=== PATIENT | female | born 1965 | race Caucasian/White ===

== ENCOUNTER 2018-07-03 16:23 | Inpatient (IN) | payer BC ==
[~2018-07-03] VITALS: Ht 167.6 cm; Wt 52.6 kg
[~2018-07-03 16:23] MED LIST: LORTAB ELIXIR473 ML PO; NORCO 10MG-325MG1 EA PO
--- OUTSIDE RECORDS SUMMARY | 2018-07-03 16:26 | XMS REPORT | Continuity of Care Document ---
Author Author Jeanna morales [facility] Interface Address Unknown Phone Unavailable Problems Problem Status Onset Date Classification Date Reported Comments Source FEVER Active 01/23/2017 [facility] HYPOTENSION Active 01/23/2017 [facility] CHRONIC PAIN Active 01/18/2017 [facility] GENERALIZED WEAKNESS, DEHYDRATION Active 01/18/2017 [facility] PATULOUS EUSTACHIAN TUBE Active 02/22/2015 [facility] 472.0 - CHRONIC RHINITI Active 01/09/2014 [facility] Fibromyalgia Resolved Problem 01/28/2017 [facility] Hearing loss Active Problem 01/28/2017 [facility] Interstitial cystitis<sup>1</sup> Active Problem 01/28/2017 bladder [facility] Moderate protein-calorie malnutrition Active Problem 01/28/2017 [facility] Osteoporosis Active Problem 01/28/2017 [facility] PATULOUS EUSTACHIAN TUBE Active [facility] WEAKNESS Active [facility] DEHYDRATION Active [facility] HYPOTENSION, UNSPECIFIED Active [facility] Medications Medication Details Route Status Patient Instructions Ordering Provider Order Date Source pantoprazole 40 MG Enteric Coated Tablet [Protonix] 40 mg=1 tab, PO, Daily, # 30 tab, 1 Refill(s) Active 01/25/2017 [facility] Sucralfate 1000 MG Oral Tablet [Carafate] 1 gm=1 tab, PO, BID, # 60 tab, 2 Refill(s) Active 01/25/2017 [facility] Fluconazole 200 MG Oral Tablet [Diflucan] 200 mg=1 tab, PO, Daily, X 5 day, # 5 tab, 0 Refill(s) Active 01/25/2017 [facility] Sodium Chloride 0.154 MEQ/ML Injectable Solution 1,000 mL, Rate: 25 ml/hr, Infuse over: 40 hr, Route: IV, Dosing Weight 59.091 kg, Total Volume: 1,000, Start date: 01/25/17 10:21:00 CDT, Duration: 30 day, Stop date: 02/24/17 10:20:00 CDT Inactive 01/25/2017 [facility] Carafate 1 gm, 1 tab, Route: PO, Drug form: TAB, BID, Dosing Weight 59.091, kg, Start date: 01/24/17 9:00:00 CDT, Duration: 30 day, Stop date: 02/22/17 17:00:00 CDTNotes: May interfere w/enteral feeds - Take 1 hr before or 2 hr after antacids, dairy pdt, meals & minerals - On empty stomach. For patients unable to swallow tablet, dissolve in 10mL - 30mL of water or juice and stir before giving. (Same As: Carafate) No Longer Active 01/24/2017 [facility] duloxetine 30 mg, 1 cap, Route: PO, Drug form: DRC, Daily, Dosing Weight 59.091, kg, Start date: 01/24/17 9:00:00 CDT, Duration: 30 day, Stop date: 02/22/17 9:00:00 CDTNotes: (Same as: Cymbalta) (Do Not Crush) No Longer Active 01/24/2017 [facility] Sucralfate 1000 MG Oral Tablet [Carafate] 1 gm=1 tab, PO, BID, # 120 tab, 0 Refill(s) No Longer Active 01/24/2017 [facility] Rabeprazole sodium 20 MG Enteric Coated Tablet [Aciphex] 20 mg=1 tab, PO, Daily, # 30 tab, 1 Refill(s) No Longer Active 01/24/2017 [facility] Sodium Chloride 0.154 MEQ/ML Injectable Solution 100 mL, Rate: 10 ml/hr, Infuse over: 10 hr, Route: IVPB, Dosing Weight 59.091 kg, Total Volume: 100, Infuse at 8 mg / hr for 72 hours for GI bleeding, Start date: 01/23/17 23:55:00 CDT, Duration: 72 hr, Stop date: 01/26/17 23:54:00 CDT No Longer Active 01/24/2017 [facility] sodium chloride 0.9% INJ 250 mL 250 mL, Rate: respiratory therapist for use with blood product administration, Dosing Weight 59.091, kg, Route: IV, Total Volume: 250, Start Date: 01/23/17 23:45:00 CDT, Duration: 30 day, Stop date: 02/22/17 23:44:00 CDT, Replace Every: 24 hr No Longer Active 01/24/2017 [facility] Morphine 2 mg, 1 mL, Route: IVP, Drug form: SOLN, Q4H, Dosing Weight 59.091, kg, PRN Pain Score 7-10, Start date: 01/23/17 23:42:00 CDT, Stop date: 02/22/17 23:41:00 CDT No Longer Active 01/24/2017 [facility] Ondansetron 4 mg, 2 mL, Route: IVP, Drug form: INJ, Q6H, Dosing Weight 59.091, kg, PRN Nausea & Vomiting, Start date: 01/23/17 23:42:00 CDT, Duration: 30 day, Stop date: 02/22/17 23:41:00 CDTNotes: (Same as: César) MEDICATION WASTE Product Size: 4 mg Product Wasted: ___ mg No Longer Active 01/24/2017 [facility] Acetaminophen 325 MG / Hydrocodone Bitartrate 5 MG Oral Tablet 1 tab, Route: PO, Drug Form: TAB, Dosing Weight 59.091, kg, Q4H, PRN Pain Score 4-6, Start date: 01/23/17 23:42:00 CDT, Duration: 30 day, Stop date: 02/22/17 23:41:00 CDTNotes: (Same as: Morrison 325/5) Do not exceed 4gm/day of acetaminophen. No Longer Active 01/24/2017 [facility] Ceftriaxone 1 gm, Route: IVPB, ONCE, Dosing Weight 59.091, kg, Priority: STAT, Start date: 01/23/17 23:15:00 CDT, Duration: 1 doses or times, Stop date: 01/23/17 23:15:00 CDT, ABX Indication: BacteremiaNotes: (Same As: Rocephin). Use with 100 mL NS and infuse over 30 min MEDICATION WASTE Product Size: 1000 mg Product Wasted: ___ mg Inactive 01/24/2017 [facility] Sodium Chloride 0.154 MEQ/ML Injectable Solution 1,000 mL, 1000 ml/hr, Infuse Over: 1 hr, Route: IV, 1,000, Drug form: INJ, ONCE, Priority: STAT, Dosing Weight 59.091 kg, Start date: 01/23/17 23:15:00 CDT, Duration: 1 doses or times, Stop date: 01/23/17 23:15:00 CDT Inactive 01/24/2017 [facility] Sodium Chloride 0.154 MEQ/ML Injectable Solution 1,000 mL, 1000 ml/hr, Infuse Over: 1 hr, Route: IV, 1,000, Drug form: INJ, ONCE, Priority: STAT, Dosing Weight 59.091 kg, Start date: 01/23/17 19:55:00 CDT, Duration: 1 doses or times, Stop date: 01/23/17 19:55:00 CDT Inactive 01/24/2017 [facility] Sodium Chloride 0.154 MEQ/ML Injectable Solution 1,000 mL, 2,000 ml/hr, Infuse Over: 0.5 hr, Route: IV, 1,000, Drug form: INJ, ONCE, Priority: STAT, Dosing Weight 59.091 kg, Start date: 01/23/17 19:37:00 CDT, Duration: 1 doses or times, Stop date: 01/23/17 19:37:00 CDT Inactive 01/24/2017 [facility] Saline Flush 0.9% 10 mL, Route: IVP, Drug Form: INJ, Dosing Weight 59.091, kg, PRN, PRN Line Flush, Start date: 01/23/17 19:37:00 CDT, Duration: 30 day, Stop date: 02/22/17 19:36:00 CDTNotes: (Same as: BD Posiflush) No Longer Active 01/24/2017 [facility] cefdinir 300 MG Oral Capsule 300 mg=1 cap, PO, [id number], # 14 cap, 0 Refill(s), other Inactive 01/23/2017 [facility] potassium chloride 10 mEq oral capsule, extended release 10 mEq=1 cap, PO, Daily, # 30 cap, 1 Refill(s) No Longer Active 01/23/2017 [facility] Metronidazole 500 MG Oral Tablet [Flagyl] 500 mg=1 tab, PO, Q8H, X 7 day, # 21 tab, 0 Refill(s) No Longer Active 01/23/2017 [facility] cefdinir 300 MG Oral Capsule 300 mg=1 cap, PO, [id number], # 14 cap, 0 Refill(s) Inactive 01/23/2017 [facility] cefdinir 300 MG Oral Capsule 300 mg, 1 cap, Route: PO, Drug form: CAP, [id number], Dosing Weight 49.545, kg, Start date: 01/22/17 18:00:00 CDT, Duration: 30 day, Stop date: 02/21/17 6:00:00 CDTNotes: (Same As: Omnicef) No Longer Active 01/22/2017 [facility] Magnesium Sulfate 2 gm, 50 mL, Route: IVPB, Drug form: INJ, ONCE, Dosing Weight 49.545, kg, Start date: 01/22/17 16:34:00 CDT, Duration: 2 hr, Stop date: 01/22/17 16:34:00 CDTNotes: WASTE: F/P - Sink; E - Municipal Trash Bin Inactive 01/22/2017 [facility] Calcium Gluconate 3 gm, 30 mL, Route: IVPB, PRN, Dosing Weight 49.545, kg, PRN Abnormal Lab Result, For NON-ICU Patients Only., Start date: 01/22/17 16:30:00 CDT, Duration: 30 day, Stop date: 02/21/17 16:29:00 CDTNotes: WASTE: F/P - Sink; E - Municipal Trash Bin No Longer Active 01/22/2017 [facility] Magnesium Sulfate 2 gm, 50 mL, Route: IVPB, Drug form: INJ, PRN, Dosing Weight 49.545, kg, PRN Abnormal Lab Result, For NON-ICU Patients Only., Start date: 01/22/17 16:30:00 CDT, Duration: 30 day, Stop date: 02/21/17 16:29:00 CDTNotes: WASTE: F/P - Sink; E - Municipal Trash Bin No Longer Active 01/22/2017 [facility] Magnesium Oxide 800 mg, 2 tab, Route: PO, Drug form: TAB, PRN, Dosing Weight 49.545, kg, PRN Abnormal Lab Result, For NON-ICU Patients Only., Start date: 01/22/17 16:30:00 CDT, Duration: 30 day, Stop date: 02/21/17 16:29:00 CDTNotes: (Same as: Mag-Ox 400) Magnesium oxide [id number] elemental magnesium Dose=____mg magnesium oxide (___mg elemental magnesium) No Longer Active 01/22/2017 [facility] sodium phosphate + D5W 250 mL 30 mmol, 10 mL, Route: IVPB, PRN, Dosing Weight 49.545, kg, PRN Abnormal Lab Result, For NON-ICU Patients Only., Start date: 01/22/17 16:30:00 CDT, Duration: 30 day, Stop date: 02/21/17 16:29:00 CDT No Longer Active 01/22/2017 [facility] potassium phosphate + sodium chloride 0.9% INJ 250 mL 15 mmol, 5 mL, Route: IVPB, PRN, Dosing Weight 49.545, kg, PRN Abnormal Lab Result, For NON-ICU Patients Only., Start date: 01/22/17 16:30:00 CDT, Duration: 30 day, Stop date: 02/21/17 16:29:00 CDTNotes: (Same as: K Phosphate.) 1 mMol phoshate has 1.47 mEq potassium Infuse over 4 hours No Longer Active 01/22/2017 [facility] potassium chloride 10 mEq, 100 mL, Route: IVPB, Drug form: INJ, PRN, Dosing Weight 49.545, kg, PRN Abnormal Lab Result, For NON-ICU Patients Only, Start date: 01/22/17 16:30:00 CDT, Duration: 30 day, Stop date: 02/21/17 16:29:00 CDTNotes: Infuse at a rate of 10 mEq/hr. (Same as: KCL) No Longer Active 01/22/2017 [facility] potassium phosphate-sodium phosphate 250 mg-280 mg-160 mg oral powder for reconstitution 2 pkt, Route: PO, Drug Form: PDR/REC, Dosing Weight 49.545, kg, PRN, PRN Abnormal Lab Result, For NON-ICU Patients Only, Start date: 01/22/17 16:30:00 CDT, Duration: 30 day, Stop date: 02/21/17 16:29:00 CDTNotes: (Same as: Phos-NaK) Each 1.5 gm pkt has 250mg phosphorous. Mix w/2.5oz water and stir. No Longer Active 01/22/2017 [facility] Paxil 20 mg, 2 tab, Route: PO, Drug form: TAB, Daily, Dosing Weight 49.545, kg, Start date: 01/22/17 9:00:00 CDT, Duration: 30 day, Stop date: 02/20/17 9:00:00 CDTNotes: (Same as: Paxil) No Longer Active 01/22/2017 [facility] potassium chloride 40 mEq, 2 tab, Route: PO, Drug form: ERTAB, PRN, Dosing Weight 49.545, kg, PRN Abnormal Lab Result, Electrolyte replacement, Start date: 01/22/17 8:10:00 CDT, Duration: 30 day, Stop date: 02/21/17 8:09:00 CDTNotes: (Same as: K-Dur 20) "Do Not Crush" With food and full glass of water No Longer Active 01/22/2017 [facility] sodium chloride 0.45% 1000 ml INJ 1,000 mL 1,000 mL, Rate: 1,000 ml/hr, Infuse over: 1 hr, Route: IV, Dosing Weight 49.545 kg, Total Volume: 1,000, Start date: 01/22/17 0:06:00 CDT, Duration: 1 doses or times, Stop date: 01/22/17 1:05:00 CDT Inactive 01/22/2017 [facility] sodium chloride 0.45% 1000 ml INJ 1,000 mL 1,000 mL, Rate: 100 ml/hr, Infuse over: 10 hr, Route: IV, Dosing Weight 49.545 kg, Total Volume: 1,000, Start date: 01/22/17 0:03:00 CDT, Duration: 30 day, Stop date: 02/21/17 0:02:00 CDT Inactive 01/22/2017 [facility] Flagyl 500 mg, 100 mL, Route: IV, Drug form: INJ, [id number], Dosing Weight 49.545, kg, Start date: 01/21/17 23:00:00 CDT, Duration: 30 day, Stop date: 02/20/17 15:00:00 CDT, ABX Indication: Infectious DiarrheaNotes: (Same as: Flagyl) Avoid alcohol. No Longer Active 01/22/2017 [facility] Imodium A-D 4 mg, 2 cap, Route: PO, Drug form: CAP, Q6H, Dosing Weight 49.545, kg, PRN Diarrhea, Start date: 01/21/17 22:30:00 CDT, Duration: 30 day, Stop date: 02/20/17 22:29:00 CDTNotes: (Same as: Imodium) MAX adult dose is 8 caps/day No Longer Active 01/22/2017 [facility] potassium chloride 20 mEq, Route: IVPB, Q2H, Dosing Weight 49.545, kg, Total dose=40 mEq, Start date: 01/21/17 10:00:00 CDT, Duration: 2 doses or times, Stop date: 01/21/17 12:00:00 CDT, Central Line Inactive 01/21/2017 [facility] potassium chloride 10 mEq, 1 tab, Route: PO, Drug form: ERTAB, BID, Dosing Weight 49.545, kg, Start date: 01/21/17 9:00:00 CDT, Duration: 30 day, Stop date: 02/19/17 17:00:00 CDTNotes: (Same as: K-Dur 10) "Do Not Crush" With food and full glass of water No Longer Active 01/21/2017 [facility] Magnesium Sulfate 2 gm, 50 mL, Route: IVPB, Drug form: INJ, ONCE, Dosing Weight 49.545, kg, Total dose=2 gm, Start date: 01/20/17 11:40:00 CDT, Duration: 1 doses or times, Stop date: 01/20/17 11:40:00 CDTNotes: WASTE: F/P - Sink; E - Municipal Trash Bin Inactive 01/20/2017 [facility] potassium chloride 10 mEq, 100 mL, Route: IVPB, Drug form: INJ, Q1H, Dosing Weight 49.545, kg, Total Dose=20 meq, Start date: 01/20/17 8:00:00 CDT, Duration: 2 doses or times, Stop date: 01/20/17 9:00:00 CDT, Peripheral LineNotes: Infuse at a rate of 10 mEq/hr. (Same as: KCL) Inactive 01/20/2017 [facility] potassium chloride 40 mEq, 2 tab, Route: PO, Drug form: ERTAB, ONCE, Dosing Weight 49.545, kg, Start date: 01/20/17 7:30:00 CDT, Stop date: 01/20/17 7:30:00 CDTNotes: (Same as: K-Dur 20) "Do Not Crush" With food and full glass of water Inactive 01/20/2017 [facility] Valium 10 mg, 2 tab, Route: PO, Drug form: TAB, TID, Dosing Weight 49.545, kg, PRN Anxiety, Start date: 01/19/17 8:13:00 CDT, Duration: 30 day, Stop date: 02/18/17 8:12:00 CDTNotes: (Same as: Valium) No Longer Active 01/19/2017 [facility] Acetaminophen 325 MG / Hydrocodone Bitartrate 10 MG Oral Tablet [Morrison 10/325] 1 tab, Route: PO, Drug Form: TAB, Dosing Weight 49.545, kg, TID, PRN Pain Score 4-6, Start date: 01/19/17 8:13:00 CDT, Duration: 30 day, Stop date: 02/18/17 8:12:00 CDTNotes: Do not exceed 4gm/day of acetaminophen. (Same as: Morrison 325/10) No Longer Active 01/19/2017 [facility] Zofran 4 mg, 2 mL, Route: IVP, Drug form: INJ, Q6H, Dosing Weight 49.545, kg, PRN Nausea, Start date: 01/18/17 21:12:00 CDT, Duration: 30 day, Stop date: 02/17/17 21:11:00 CDTNotes: (Same as: Zofran) MEDICATION WASTE Product Size: 4 mg Product Wasted: ___ mg No Longer Active 01/19/2017 [facility] Tylenol 650 mg, 2 tab, Route: PO, Drug form: TAB, Q6H, Dosing Weight 49.545, kg, PRN Pain 1-3/Temp > 100.4 F, Start date: 01/18/17 21:11:00 CDT, Duration: 30 day, Stop date: 02/17/17 21:10:00 CDTNotes: Do not exceed 4 gm/day. (Same as: Tylenol) No Longer Active 01/19/2017 [facility] Docusate 100 mg, 1 cap, Route: PO, Drug form: CAP, BID, Dosing Weight 59.091, kg, Start date: 01/18/17 9:00:00 CDT, Duration: 30 day, Stop date: 02/16/17 17:00:00 CDTNotes: (Same as: Colace) (Do Not Crush) No Longer Active 01/18/2017 [facility] Diazepam 10 MG Oral Tablet [Valium] 10 mg=1 tab, PO, TID, PRN as needed for anxiety, 0 Refill(s) No Longer Active 01/18/2017 [facility] Rocephin 1 gm, Route: IVPB, [id number], Dosing Weight 59.091, kg, Start date: 01/18/17 6:00:00 CDT, Duration: 5 day, Stop date: 01/22/17 6:00:00 CDT, ABX Indication: Immunocompromised Host ProphylaxisNotes: (Same As: Rocephin). Use with 100 mL NS and infuse over 30 min MEDICATION WASTE Product Size: 1000 mg Product Wasted: ___ mg No Longer Active 01/18/2017 [facility] Sodium Chloride 0.154 MEQ/ML Injectable Solution 1,000 mL, Rate: 125 ml/hr, Infuse over: 8 hr, Route: IV, Dosing Weight 59.091 kg, Total Volume: 1,000, Start date: 01/18/17 5:56:00 CDT, Duration: 30 day, Stop date: 02/17/17 5:55:00 CDT No Longer Active 01/18/2017 [facility] Saline Flush 0.9% 10 ml, Route: IVP, Drug Form: INJ, Dosing Weight 59.091, kg, PRN, PRN Line Flush, Start date: 01/18/17 5:56:00 CDT, Duration: 30 day, Stop date: 02/17/17 5:55:00 CDTNotes: (Same as: BD Posiflush) No Longer Active 01/18/2017 [facility] Ondansetron 4 mg, 2 mL, Route: IVP, Drug form: INJ, Q6H, Dosing Weight 59.091, kg, PRN Nausea & Vomiting, Start date: 01/18/17 5:56:00 CDT, Duration: 30 day, Stop date: 02/17/17 5:55:00 CDTNotes: (Same as: Zoan) MEDICATION WASTE Product Size: 4 mg Product Wasted: ___ mg No Longer Active 01/18/2017 [facility] Acetaminophen 325 MG / Hydrocodone Bitartrate 5 MG Oral Tablet 1 tab, Route: PO, Drug Form: TAB, Dosing Weight 59.091, kg, Q4H, PRN Pain Score 4-6, Start date: 01/18/17 5:56:00 CDT, Duration: 30 day, Stop date: 02/17/17 5:55:00 CDTNotes: (Same as: Morrison 325/5) Do not exceed 4gm/day of acetaminophen. No Longer Active 01/18/2017 [facility] Sodium Chloride 0.154 MEQ/ML Injectable Solution 1,000 mL, 1000 ml/hr, Infuse Over: 1 hr, Route: IV, 1,000, Drug form: INJ, ONCE, Priority: STAT, Dosing Weight 59.091 kg, Start date: 01/18/17 5:13:00 CDT, Duration: 1 doses or times, Stop date: 01/18/17 5:13:00 CDT Inactive 01/18/2017 [facility] Sodium Chloride 0.154 MEQ/ML Injectable Solution 1,000 mL, Infuse Over: 1 hr, Route: IV, ONCE, Priority: STAT, Dosing Weight 59.091 kg, Start date: 01/18/17 4:57:00 CDT, Duration: 1 doses or times, Stop date: 01/18/17 4:57:00 CDT Inactive 01/18/2017 [facility] Sodium Chloride 0.154 MEQ/ML Injectable Solution 1,000 mL, Infuse Over: 1 hr, Route: IV, ONCE, Priority: STAT, Dosing Weight 59.091 kg, Start date: 01/18/17 3:24:00 CDT, Duration: 1 doses or times, Stop date: 01/18/17 3:24:00 CDT Inactive 01/18/2017 [facility] Allergies, Adverse Reactions, Alerts Substance Category Reaction Severity Reaction type Status Date Reported Comments Source Immunizations Immunization Date Given Site Status Last Updated Comments Source Results Order Name Results Value Reference Range Date Interpretation Comments Source HEMATOLOGY Platelet 92 K/CMM 133 - 450 01/25/2017 [facility] HEMATOLOGY MPV 8.9 fL 7.4 - 10.4 01/25/2017 [facility] HEMATOLOGY MCV 94.8 fL 80.0 - 98.0 01/25/2017 [facility] HEMATOLOGY MCHC 34.0 g/dL 32.0 - 36.0 01/25/2017 [facility] HEMATOLOGY Hct 26.7 % 36.0 - 48.0 01/25/2017 [facility] HEMATOLOGY Hgb 9.1 g/dL 12.0 - 16.0 01/25/2017 [facility] HEMATOLOGY RBC 2.82 M/CMM 4.20 - 5.40 01/25/2017 [facility] MCH 32.3 pg 27.0 - 31.0 01/25/2017 [facility] HEMATOLOGY RDW 19.7 % 11.5 - 14.5 01/25/2017 [facility] HEMATOLOGY WBC 10.4 K/CMM 3.7 - 10.4 01/25/2017 [facility] HEMATOLOGY Eosinophils 0.1 % 0.0 - 4.0 01/25/2017 [facility] HEMATOLOGY Basophils 0.7 % 0.0 - 1.0 01/25/2017 [facility] HEMATOLOGY Monocytes 13.4 % 2.0 - 12.0 01/25/2017 [facility] HEMATOLOGY Lymphocytes 49.7 % 20.0 - 40.0 01/25/2017 [facility] HEMATOLOGY Basophils # 0.1 K/CMM 0.0 - 0.2 01/25/2017 [facility] HEMATOLOGY Segs-Bands # 3.8 K/CMM 1.5 - 8.1 01/25/2017 [facility] HEMATOLOGY Monocytes # 1.4 K/CMM 0.0 - 0.8 01/25/2017 [facility] HEMATOLOGY Lymphocytes # 5.2 K/CMM 1.0 - 5.5 01/25/2017 [facility] HEMATOLOGY Segs 36.1 % 45.0 - 75.0 01/25/2017 [facility] ELECTROLYTES Chloride Lvl 103 meq/L 95 - 109 01/25/2017 [facility] ELECTROLYTES ALT 35 unit/L 0 - 65 01/25/2017 [facility] ELECTROLYTES Calcium Lvl 8.0 mg/dL 8.5 - 10.5 01/25/2017 [facility] ELECTROLYTES Albumin Lvl 2.5 g/dL 3.5 - 5.0 01/25/2017 [facility] ELECTROLYTES CO2 30 meq/L 24 - 32 01/25/2017 [facility] ELECTROLYTES Total Protein 5.9 g/dL 6.4 - 8.4 01/25/2017 [facility] ELECTROLYTES Globulin 3.4 g/dL 2.7 - 4.2 01/25/2017 [facility] ELECTROLYTES A/G Ratio 0.7 0.7 - 1.6 01/25/2017 [facility] ELECTROLYTES eGFR 130 mL/min/1.73m2 01/25/2017 Result Comment: The eGFR is calculated using the CKD-EPI formula. In most young, healthy individuals the eGFR will be >90 mL/min/1.73m2. The eGFR declines with age. An eGFR of 60-89 may be normal in some populations, particularly the elderly, for whom the CKD-EPI formula has not been extensively validated. Use of the eGFR is not recommended in the following populations: Individuals with unstable creatinine concentrations, including patients and those with serious co-morbid conditions. Patients with extremes in muscle mass or diet. The data above are obtained from the National Kidney Disease Education Program (NKDEP) which additionally recommends that when the eGFR is used in patients with extremes of body mass index for purposes of drug dosing, the eGFR should be multiplied by the estimated BMI. [facility] ELECTROLYTES Creatinine Lvl 0.33 mg/dL 0.50 - 1.40 01/25/2017 [facility] ELECTROLYTES BUN 5 mg/dL 7 - 22 01/25/2017 [facility] ELECTROLYTES Potassium Lvl 3.1 meq/L 3.5 - 5.1 01/25/2017 [facility] ELECTROLYTES Sodium Lvl 141 meq/L 135 - 145 01/25/2017 [facility] ELECTROLYTES AST 102 unit/L 0 - 37 01/25/2017 [facility] ELECTROLYTES Bili Total 0.7 mg/dL 0.2 - 1.3 01/25/2017 [facility] ELECTROLYTES Alk Phos 123 unit/L 39 - 136 01/25/2017 [facility] ELECTROLYTES B/C Ratio 15 6 - 25 01/25/2017 [facility] ELECTROLYTES AGAP 11.1 meq/L 10.0 - 20.0 01/25/2017 [facility] ELECTROLYTES Glucose Lvl 85 mg/dL 70 - 99 01/25/2017 [facility] HEMATOLOGY Hgb 8.4 g/dL 12.0 - 16.0 01/25/2017 [facility] HEMATOLOGY Hct 24.6 % 36.0 - 48.0 01/25/2017 [facility] HEMATOLOGY MPV 9.5 fL 7.4 - 10.4 01/24/2017 [facility] Platelet 96 K/CMM 133 - 450 01/24/2017 [facility] MCHC 33.9 g/dL 32.0 - 36.0 01/24/2017 [facility] MCH 31.8 pg 27.0 - 31.0 01/24/2017 [facility] RDW 19.9 % 11.5 - 14.5 01/24/2017 [facility] RBC 2.82 M/CMM 4.20 - 5.40 01/24/2017 [facility] Hgb 8.9 g/dL 12.0 - 16.0 01/24/2017 [facility] WBC 10.8 K/CMM 3.7 - 10.4 01/24/2017 [facility] MCV 93.6 fL 80.0 - 98.0 01/24/2017 [facility] Hct 26.4 % 36.0 - 48.0 01/24/2017 [facility] Hypochrom 1+ (01/24/17 3:40 PM) None Seen 01/24/2017 [facility] Polychrom Moderate *ABN* (01/24/17 3:40 PM) None Seen 01/24/2017 [facility] Basophils # 0.1 K/CMM 0.0 - 0.2 01/24/2017 [facility] Monocytes # 1.1 K/CMM 0.0 - 0.8 01/24/2017 [facility] Lymphocytes # 4.4 K/CMM 1.0 - 5.5 01/24/2017 [facility] Lymphocytes 40.7 % 20.0 - 40.0 01/24/2017 [facility] Plt Morph Normal (01/24/17 3:40 PM) 01/24/2017 [facility] Segs 48.5 % 45.0 - 75.0 01/24/2017 [facility] Segs-Bands # 5.2 K/CMM 1.5 - 8.1 01/24/2017 [facility] Monocytes 10.2 % 2.0 - 12.0 01/24/2017 [facility] Basophils 0.5 % 0.0 - 1.0 01/24/2017 [facility] Eosinophils 0.1 % 0.0 - 4.0 01/24/2017 [facility] Abdomen RUQ US Abdomen RUQ US Patient Name: MARIA ISABEL KELLY : 1965; Age: 51 years Female MR: [id number] Study: Abdomen RUQ US 01/24/2017 11:53 AM CDT CLINICAL INDICATION: - elevated lfts rule out cirrhosis ADDITIONAL HISTORY: None COMPARISON: None TECHNIQUE: Grayscale and limited color sonographic evaluation of the right upper quadrant of the abdomen and gallbladder region was performed with standard technique. FINDINGS: Liver: The liver demonstrates heterogeneous echogenicity and is normal in size, measuring 16.2 cm. No focal liver lesion identified. The main portal vein demonstrates normal hepatopedal flow. Gallbladder: Contracted but otherwise unremarkable appearance of the gallbladder without evidence of stones, wall thickening, or pericholecystic fluid. Biliary: No intra or extrahepatic biliary ductal dilatation. The common bile duct measures 0.3 cm. Pancreas: The visualized portions of the pancreatic body are unremarkable. Kidney: The right kidney measures 11.5 cm in length. Normal renal echogenicity without evidence of hydronephrosis. Trace ascites within the right upper quadrant. IMPRESSION: Heterogeneous hepatic parenchyma can be associated with intrinsic liver disease. Trace ascites within the right upper quadrant. SL: [id number] 01/24/2017 - - Read by: Reynold Rogers MD Dictated Date/time: 01/24/17 15:28 Electronically Signed by: Reynold Rogers MD 01/24/17 15:30 FINAL REPORT [facility] BLOOD BANK RESULTS Antibody Scrn Negative (01/24/17 5:35 AM) 01/24/2017 [facility] BLOOD BANK RESULTS ABO/Rh O POS 01/24/2017 [facility] BLOOD BANK RESULTS RBC product Product available 1 (01/23/17 11:44 PM) 01/24/2017 Result Comment: 01/24/2017 06:33 [id number] notified yosvany in cdu [facility] DRUG SCREEN U Cocaine Scr Negative *NA* (01/23/17 8:47 PM) Negative 01/24/2017 [facility] DRUG SCREEN U Benzodia Scr Positive *ABN* (01/23/17 8:47 PM) Negative 01/24/2017 [facility] DRUG SCREEN U Barbra Scr Negative *NA* (01/23/17 8:47 PM) Negative 01/24/2017 [facility] DRUG SCREEN U Amph Scr Negative *NA* (01/23/17 8:47 PM) Negative 01/24/2017 [facility] DRUG SCREEN UDS Note See Note (01/23/17 8:47 PM) 01/24/2017 [facility] DRUG SCREEN U Phencyc Scr Negative *NA* (01/23/17 8:47 PM) Negative 01/24/2017 [facility] DRUG SCREEN U Opiate Scr Positive *ABN* (01/23/17 8:47 PM) Negative 01/24/2017 [facility] DRUG SCREEN U Cannab Scr Negative *NA* (01/23/17 8:47 PM) Negative 01/24/2017 [facility] URINE AND STOOL UA Bili Negative *NA* (01/23/17 8:47 PM) Negative 01/24/2017 [facility] URINE AND STOOL UA Ketones Negative mg/dL Negative mg/dL 01/24/2017 [facility] URINE AND STOOL UA Blood Small *ABN* (01/23/17 8:47 PM) Negative 01/24/2017 [facility] URINE AND STOOL UA Turbidity Clear (01/23/17 8:47 PM) Clear 01/24/2017 [facility] URINE AND STOOL UA pH 7.0 5.0 - 8.0 01/24/2017 [facility] URINE AND STOOL UA Spec Grav 1.005 <=1.030 01/24/2017 [facility] URINE AND STOOL UA Protein Negative mg/dL Negative mg/dL 01/24/2017 [facility] URINE AND STOOL UA Glucose Negative mg/dL Negative mg/dL 01/24/2017 [facility] URINE AND STOOL UA Leuk Est Negative (01/23/17 8:47 PM) Negative 01/24/2017 [facility] URINE AND STOOL UA Sq Epi Occasional /LPF Few /LPF 01/24/2017 [facility] URINE AND STOOL UA Nitrite Negative (01/23/17 8:47 PM) Negative 01/24/2017 [facility] URINE AND STOOL UA RBC null 0 - 2 01/24/2017 [facility] URINE AND STOOL UA WBC null 0 - 5 01/24/2017 [facility] URINE AND STOOL UA Color Ltyellow 01/24/2017 [facility] URINE AND STOOL UA Urobilinogen <=1.0 mg/dL 0.1 - 1.0 01/24/2017 [facility] CARDIAC ENZYMES CK MB Index 0.7 0.0 - 2.5 01/24/2017 [facility] CARDIAC ENZYMES Total CK 148 unit/L 12 - 191 01/24/2017 [facility] CARDIAC ENZYMES Troponin-I 0.05 ng/mL 0.00 - 0.40 01/24/2017 [facility] CARDIAC ENZYMES CK MB 1.0 ng/mL 0.5 - 3.6 01/24/2017 [facility] CHEM PANEL Procalcitonin Lvl 1.28 ng/mL 0.00 - 0.10 01/24/2017 [facility] CHEM PANEL Lactic Acid Lvl 1.0 mMol/L 0.5 - 2.2 01/24/2017 [facility] ELECTROLYTES AGAP 9.5 meq/L 10.0 - 20.0 01/24/2017 [facility] ELECTROLYTES Globulin 2.9 g/dL 2.7 - 4.2 01/24/2017 [facility] ELECTROLYTES B/C Ratio 20 6 - 25 01/24/2017 [facility] ELECTROLYTES A/G Ratio 0.8 0.7 - 1.6 01/24/2017 [facility] eGFR 127 mL/min/1.73m2 01/24/2017 Result Comment: The eGFR is calculated using the CKD-EPI formula. In most young, healthy individuals the eGFR will be >90 mL/min/1.73m2. The eGFR declines with age. An eGFR of 60-89 may be normal in some populations, particularly the elderly, for whom the CKD-EPI formula has not been extensively validated. Use of the eGFR is not recommended in the following populations: Individuals with unstable creatinine concentrations, including patients and those with serious co-morbid conditions. Patients with extremes in muscle mass or diet. The data above are obtained from the National Kidney Disease Education Program (NKDEP) which additionally recommends that when the eGFR is used in patients with extremes of body mass index for purposes of drug dosing, the eGFR should be multiplied by the estimated BMI. [facility] ELECTROLYTES Bili Total 0.7 mg/dL 0.2 - 1.3 01/24/2017 [facility] ELECTROLYTES Alk Phos 116 unit/L 39 - 136 01/24/2017 [facility] ELECTROLYTES Chloride Lvl 105 meq/L 95 - 109 01/24/2017 [facility] ELECTROLYTES Potassium Lvl 3.5 meq/L 3.5 - 5.1 01/24/2017 [facility] ELECTROLYTES Sodium Lvl 143 meq/L 135 - 145 01/24/2017 [facility] ELECTROLYTES Creatinine Lvl 0.35 mg/dL 0.50 - 1.40 01/24/2017 [facility] ELECTROLYTES BUN 7 mg/dL 7 - 22 01/24/2017 [facility] ELECTROLYTES Glucose Lvl 96 mg/dL 70 - 99 01/24/2017 [facility] ELECTROLYTES ALT 34 unit/L 0 - 65 01/24/2017 [facility] ELECTROLYTES Albumin Lvl 2.3 g/dL 3.5 - 5.0 01/24/2017 [facility] ELECTROLYTES AST 124 unit/L 0 - 37 01/24/2017 [facility] ELECTROLYTES Calcium Lvl 7.9 mg/dL 8.5 - 10.5 01/24/2017 [facility] ELECTROLYTES CO2 32 meq/L 24 - 32 01/24/2017 [facility] ELECTROLYTES Total Protein 5.2 g/dL 6.4 - 8.4 01/24/2017 [facility] HEMATOLOGY Lymphocytes # 3.5 K/CMM 1.0 - 5.5 01/24/2017 [facility] HEMATOLOGY Monocytes # 1.2 K/CMM 0.0 - 0.8 01/24/2017 [facility] HEMATOLOGY Basophils # 0.1 K/CMM 0.0 - 0.2 01/24/2017 [facility] HEMATOLOGY Segs-Bands # 4.7 K/CMM 1.5 - 8.1 01/24/2017 [facility] Basophils 0.6 % 0.0 - 1.0 01/24/2017 [facility] Monocytes 12.5 % 2.0 - 12.0 01/24/2017 [facility] HEMATOLOGY Eosinophils 0.2 % 0.0 - 4.0 01/24/2017 [facility] Plt Morph Normal (01/23/17 7:53 PM) 01/24/2017 [facility] Segs 49.2 % 45.0 - 75.0 01/24/2017 [facility] Lymphocytes 37.5 % 20.0 - 40.0 01/24/2017 [facility] RBC Morph Normal (01/23/17 7:53 PM) 01/24/2017 [facility] MPV 9.9 fL 7.4 - 10.4 01/24/2017 [facility] MCV 96.6 fL 80.0 - 98.0 01/24/2017 [facility] RBC 2.33 M/CMM 4.20 - 5.40 01/24/2017 [facility] WBC 9.5 K/CMM 3.7 - 10.4 01/24/2017 [facility] MCH 32.9 pg 27.0 - 31.0 01/24/2017 [facility] MCHC 34.0 g/dL 32.0 - 36.0 01/24/2017 [facility] RDW 16.3 % 11.5 - 14.5 01/24/2017 [facility] HEMATOLOGY Platelet 77 K/CMM 133 - 450 01/24/2017 [facility] HEMATOLOGY INR 1.15 0.85 - 1.17 01/24/2017 [facility] HEMATOLOGY PT 14.9 s 12.0 - 14.7 01/24/2017 [facility] HEMATOLOGY PTT 37.4 s 22.9 - 35.8 01/24/2017 [facility] Chest 1view DX Chest 1view DX Clinical Indication:51 years Female with - Undifferentiated Sepsis Comparison: Chest x-ray 01/18/2017 FINDINGS: Lines: None. The single frontal chest radiograph shows normal lung volumes. No interstitial or airspace opacities. No pleural effusion. No pneumothorax. Cardiac silhouette is normal. Pulmonary vasculature is normal. The trachea is midline. There are no acute osseous abnormalities noted. IMPRESSION: No acute cardiopulmonary abnormality. No significant change from prior chest x-ray 01/23/2017 - - Read by: Hasmukh Shields MD Dictated Date/time: 01/23/17 20:11 Electronically Signed by: Hasmukh Shields MD 01/23/17 20:14 FINAL REPORT [facility] CHEM PANEL Magnesium Lvl 2.1 mg/dL 1.8 - 2.4 01/23/2017 [facility] ELECTROLYTES Potassium Lvl 3.9 meq/L 3.5 - 5.1 01/23/2017 [facility] CHEM PANEL Magnesium Lvl 2.0 mg/dL 1.8 - 2.4 01/23/2017 [facility] ELECTROLYTES Potassium Lvl 3.5 meq/L 3.5 - 5.1 01/23/2017 [facility] DRUG SCREEN UDS Note See Note (01/22/17 10:00 AM) 01/22/2017 [facility] DRUG SCREEN U Phencyc Scr Negative *NA* (01/22/17 10:00 AM) Negative 01/22/2017 [facility] DRUG SCREEN U Opiate Scr Positive *ABN* (01/22/17 10:00 AM) Negative 01/22/2017 [facility] DRUG SCREEN U Cannab Scr Negative *NA* (01/22/17 10:00 AM) Negative 01/22/2017 [facility] DRUG SCREEN U Cocaine Scr Negative *NA* (01/22/17 10:00 AM) Negative 01/22/2017 [facility] DRUG SCREEN U Benzodia Scr Positive *ABN* (01/22/17 10:00 AM) Negative 01/22/2017 [facility] DRUG SCREEN U Barbra Scr Negative *NA* (01/22/17 10:00 AM) Negative 01/22/2017 [facility] DRUG SCREEN U Amph Scr Negative *NA* (01/22/17 10:00 AM) Negative 01/22/2017 [facility] CHEM PANEL eGFR 146 mL/min/1.73m2 01/22/2017 Result Comment: The eGFR is calculated using the CKD-EPI formula. In most young, healthy individuals the eGFR will be >90 mL/min/1.73m2. The eGFR declines with age. An eGFR of 60-89 may be normal in some populations, particularly the elderly, for whom the CKD-EPI formula has not been extensively validated. Use of the eGFR is not recommended in the following populations: Individuals with unstable creatinine concentrations, including patients and those with serious co-morbid conditions. Patients with extremes in muscle mass or diet. The data above are obtained from the National Kidney Disease Education Program (NKDEP) which additionally recommends that when the eGFR is used in patients with extremes of body mass index for purposes of drug dosing, the eGFR should be multiplied by the estimated BMI. [facility] CHEM PANEL Glucose Lvl 91 mg/dL 70 - 99 01/22/2017 [facility] CHEM PANEL BUN 11 mg/dL 7 - 22 01/22/2017 [facility] CHEM PANEL Sodium Lvl 139 meq/L 135 - 145 01/22/2017 [facility] CHEM PANEL Creatinine Lvl 0.23 mg/dL 0.50 - 1.40 01/22/2017 [facility] CHEM PANEL Chloride Lvl 105 meq/L 95 - 109 01/22/2017 [facility] CHEM PANEL Potassium Lvl 3.1 meq/L 3.5 - 5.1 01/22/2017 [facility] CHEM PANEL AGAP 11.1 meq/L 10.0 - 20.0 01/22/2017 [facility] CHEM PANEL CO2 26 meq/L 24 - 32 01/22/2017 [facility] CHEM PANEL Calcium Lvl 7.4 mg/dL 8.5 - 10.5 01/22/2017 [facility] HEMATOLOGY Basophils 1.0 % 0.0 - 1.0 01/22/2017 [facility] HEMATOLOGY Eosinophils 0.1 % 0.0 - 4.0 01/22/2017 [facility] HEMATOLOGY Monocytes 9.2 % 2.0 - 12.0 01/22/2017 [facility] HEMATOLOGY Lymphocytes 34.7 % 20.0 - 40.0 01/22/2017 [facility] HEMATOLOGY Basophils # 0.1 K/CMM 0.0 - 0.2 01/22/2017 [facility] HEMATOLOGY Monocytes # 0.9 K/CMM 0.0 - 0.8 01/22/2017 [facility] HEMATOLOGY Lymphocytes # 3.2 K/CMM 1.0 - 5.5 01/22/2017 [facility] HEMATOLOGY Segs 55.0 % 45.0 - 75.0 01/22/2017 [facility] HEMATOLOGY Segs-Bands # 5.1 K/CMM 1.5 - 8.1 01/22/2017 [facility] HEMATOLOGY MPV 10.7 fL 7.4 - 10.4 01/22/2017 [facility] HEMATOLOGY Platelet 60 K/CMM 133 - 450 01/22/2017 [facility] HEMATOLOGY RDW 15.7 % 11.5 - 14.5 01/22/2017 [facility] HEMATOLOGY MCHC 34.7 g/dL 32.0 - 36.0 01/22/2017 [facility] HEMATOLOGY MCH 32.9 pg 27.0 - 31.0 01/22/2017 [facility] HEMATOLOGY Hct 24.7 % 36.0 - 48.0 01/22/2017 [facility] HEMATOLOGY RBC 2.61 M/CMM 4.20 - 5.40 01/22/2017 [facility] HEMATOLOGY MCV 94.8 fL 80.0 - 98.0 01/22/2017 [facility] HEMATOLOGY Hgb 8.6 g/dL 12.0 - 16.0 01/22/2017 [facility] HEMATOLOGY WBC 9.2 K/CMM 3.7 - 10.4 01/22/2017 [facility] CHEM PANEL Magnesium Lvl 1.8 mg/dL 1.8 - 2.4 01/21/2017 [facility] ELECTROLYTES Sodium Lvl 141 meq/L 135 - 145 01/21/2017 [facility] ELECTROLYTES BUN 9 mg/dL 7 - 22 01/21/2017 [facility] ELECTROLYTES Creatinine Lvl 0.16 mg/dL 0.50 - 1.40 01/21/2017 [facility] ELECTROLYTES Calcium Lvl 7.5 mg/dL 8.5 - 10.5 01/21/2017 [facility] ELECTROLYTES Glucose Lvl 76 mg/dL 70 - 99 01/21/2017 [facility] ELECTROLYTES AGAP 15.8 meq/L 10.0 - 20.0 01/21/2017 [facility] ELECTROLYTES Chloride Lvl 104 meq/L 95 - 109 01/21/2017 [facility] ELECTROLYTES CO2 24 meq/L 24 - 32 01/21/2017 [facility] ELECTROLYTES eGFR 165 mL/min/1.73m2 01/21/2017 Result Comment: The eGFR is calculated using the CKD-EPI formula. In most young, healthy individuals the eGFR will be >90 mL/min/1.73m2. The eGFR declines with age. An eGFR of 60-89 may be normal in some populations, particularly the elderly, for whom the CKD-EPI formula has not been extensively validated. Use of the eGFR is not recommended in the following populations: Individuals with unstable creatinine concentrations, including patients and those with serious co-morbid conditions. Patients with extremes in muscle mass or diet. The data above are obtained from the National Kidney Disease Education Program (NKDEP) which additionally recommends that when the eGFR is used in patients with extremes of body mass index for purposes of drug dosing, the eGFR should be multiplied by the estimated BMI. [facility] CHEM PANEL eGFR 153 mL/min/1.73m2 01/20/2017 Result Comment: The eGFR is calculated using the CKD-EPI formula. In most young, healthy individuals the eGFR will be >90 mL/min/1.73m2. The eGFR declines with age. An eGFR of 60-89 may be normal in some populations, particularly the elderly, for whom the CKD-EPI formula has not been extensively validated. Use of the eGFR is not recommended in the following populations: Individuals with unstable creatinine concentrations, including patients and those with serious co-morbid conditions. Patients with extremes in muscle mass or diet. The data above are obtained from the National Kidney Disease Education Program (NKDEP) which additionally recommends that when the eGFR is used in patients with extremes of body mass index for purposes of drug dosing, the eGFR should be multiplied by the estimated BMI. [facility] CHEM PANEL Sodium Lvl 139 meq/L 135 - 145 01/20/2017 [facility] CHEM PANEL Chloride Lvl 104 meq/L 95 - 109 01/20/2017 [facility] CHEM PANEL AGAP 15.6 meq/L 10.0 - 20.0 01/20/2017 [facility] CHEM PANEL CO2 22 meq/L 24 - 32 01/20/2017 [facility] CHEM PANEL Calcium Lvl 7.5 mg/dL 8.5 - 10.5 01/20/2017 [facility] CHEM PANEL Creatinine Lvl 0.20 mg/dL 0.50 - 1.40 01/20/2017 [facility] CHEM PANEL BUN 9 mg/dL 7 - 22 01/20/2017 [facility] CHEM PANEL Glucose Lvl 80 mg/dL 70 - 99 01/20/2017 [facility] CHEM PANEL Procalcitonin Lvl 5.62 ng/mL 0.00 - 0.10 01/20/2017 Result Comment: Critical Result(s) called to Mallika Alcala at 01/20/2017 07:31 by [email or web address]. Read back OK. [facility] HEMATOLOGY Eosinophils 0.4 % 0.0 - 4.0 01/20/2017 [facility] Lymphocytes 16.1 % 20.0 - 40.0 01/20/2017 [facility] Monocytes 7.5 % 2.0 - 12.0 01/20/2017 [facility] Segs 75.7 % 45.0 - 75.0 01/20/2017 [facility] Plt Morph Normal (01/20/17 5:32 AM) 01/20/2017 [facility] Schistocyte 1-3 per HPF (01/20/17 5:32 AM) None Seen 01/20/2017 [facility] Segs-Bands # 5.8 K/CMM 1.5 - 8.1 01/20/2017 [facility] Basophils 0.3 % 0.0 - 1.0 01/20/2017 [facility] Monocytes # 0.6 K/CMM 0.0 - 0.8 01/20/2017 [facility] Lymphocytes # 1.2 K/CMM 1.0 - 5.5 01/20/2017 [facility] Target Cell Slight 01/20/2017 [facility] MCV 96.5 fL 80.0 - 98.0 01/20/2017 [facility] MPV 10.7 fL 7.4 - 10.4 01/20/2017 [facility] Platelet 35 K/CMM 133 - 450 01/20/2017 [facility] RDW 14.9 % 11.5 - 14.5 01/20/2017 [facility] MCHC 34.1 g/dL 32.0 - 36.0 01/20/2017 [facility] Hct 27.7 % 36.0 - 48.0 01/20/2017 [facility] MCH 32.9 pg 27.0 - 31.0 01/20/2017 [facility] Hgb 9.5 g/dL 12.0 - 16.0 01/20/2017 [facility] HEMATOLOGY RBC 2.87 M/CMM 4.20 - 5.40 01/20/2017 [facility] HEMATOLOGY WBC 7.7 K/CMM 3.7 - 10.4 01/20/2017 [facility] CHEM PANEL Phosphorus 2.2 mg/dL 2.5 - 4.5 01/19/2017 [facility] CHEM PANEL Albumin Lvl 2.6 g/dL 3.5 - 5.0 01/19/2017 [facility] CHEM PANEL Bili Total 0.6 mg/dL 0.2 - 1.3 01/19/2017 [facility] CHEM PANEL Alk Phos 112 unit/L 39 - 136 01/19/2017 [facility] CHEM PANEL Total Protein 5.2 g/dL 6.4 - 8.4 01/19/2017 [facility] CHEM PANEL AST 103 unit/L 0 - 37 01/19/2017 [facility] CHEM PANEL ALT 46 unit/L 0 - 65 01/19/2017 [facility] CHEM PANEL Globulin 2.6 g/dL 2.7 - 4.2 01/19/2017 [facility] CHEM PANEL A/G Ratio 1.0 0.7 - 1.6 01/19/2017 [facility] CHEM PANEL B/C Ratio 26 6 - 25 01/19/2017 [facility] HEMATOLOGY MPV 10.6 fL 7.4 - 10.4 01/19/2017 [facility] HEMATOLOGY Platelet 33 K/CMM 133 - 450 01/19/2017 [facility] HEMATOLOGY RDW 14.3 % 11.5 - 14.5 01/19/2017 [facility] WBC 7.0 K/CMM 3.7 - 10.4 01/19/2017 [facility] Hgb 10.3 g/dL 12.0 - 16.0 01/19/2017 [facility] HEMATOLOGY RBC 3.09 M/CMM 4.20 - 5.40 01/19/2017 [facility] HEMATOLOGY Hct 30.3 % 36.0 - 48.0 01/19/2017 [facility] MCHC 34.2 g/dL 32.0 - 36.0 01/19/2017 [facility] HEMATOLOGY MCV 98.2 fL 80.0 - 98.0 01/19/2017 [facility] MCH 33.5 pg 27.0 - 31.0 01/19/2017 [facility] HEMATOLOGY Monocytes 5.8 % 2.0 - 12.0 01/19/2017 [facility] HEMATOLOGY Lymphocytes 11.9 % 20.0 - 40.0 01/19/2017 [facility] HEMATOLOGY Segs 82.0 % 45.0 - 75.0 01/19/2017 [facility] HEMATOLOGY Basophils 0.3 % 0.0 - 1.0 01/19/2017 [facility] HEMATOLOGY Lymphocytes # 0.8 K/CMM 1.0 - 5.5 01/19/2017 [facility] HEMATOLOGY Segs-Bands # 5.7 K/CMM 1.5 - 8.1 01/19/2017 [facility] HEMATOLOGY Monocytes # 0.4 K/CMM 0.0 - 0.8 01/19/2017 [facility] IMMUNOLOGY Log10 HIV1 null 01/19/2017 [facility] Vir Ld-HIV1 RNA Not Detected (01/19/17 4:14 AM) 01/19/2017 [facility] Hep B Core IgM Negative *NA* (01/19/17 4:14 AM) Negative 01/19/2017 [facility] Hep A IgM Negative *NA* (01/19/17 4:14 AM) Negative 01/19/2017 [facility] Hep Bs Ag Negative *NA* (01/19/17 4:14 AM) Negative 01/19/2017 [facility] Hep C Ab Negative *NA* (01/19/17 4:14 AM) 01/19/2017 [facility] CHEM PANEL Lactic Acid Lvl 1.2 mMol/L 0.5 - 2.2 01/18/2017 [facility] CARDIAC ENZYMES Total CK 104 unit/L 12 - 191 01/18/2017 [facility] CARDIAC ENZYMES Total CK 102 unit/L 12 - 191 01/18/2017 [facility] CARDIAC ENZYMES Troponin-I 0.02 ng/mL 0.00 - 0.40 01/18/2017 [facility] CARDIAC ENZYMES CK MB 0.7 ng/mL 0.5 - 3.6 01/18/2017 [facility] CARDIAC ENZYMES CK MB Index 0.7 0.0 - 2.5 01/18/2017 [facility] CHEM PANEL B/C Ratio 39 6 - 25 01/18/2017 [facility] CHEM PANEL Globulin 3.5 g/dL 2.7 - 4.2 01/18/2017 [facility] CHEM PANEL A/G Ratio 0.9 0.7 - 1.6 01/18/2017 [facility] CHEM PANEL Alk Phos 141 unit/L 39 - 136 01/18/2017 [facility] CHEM PANEL Bili Total 0.5 mg/dL 0.2 - 1.3 01/18/2017 [facility] CHEM PANEL AST 132 unit/L 0 - 37 01/18/2017 [facility] CHEM PANEL ALT 71 unit/L 0 - 65 01/18/2017 [facility] CHEM PANEL Albumin Lvl 3.0 g/dL 3.5 - 5.0 01/18/2017 [facility] CHEM PANEL Total Protein 6.5 g/dL 6.4 - 8.4 01/18/2017 [facility] URINE AND STOOL UA Ketones 20 mg/dL Negative mg/dL 01/18/2017 [facility] URINE AND STOOL UA Glucose Negative mg/dL Negative mg/dL 01/18/2017 [facility] URINE AND STOOL UA Protein 30 mg/dL Negative mg/dL 01/18/2017 [facility] URINE AND STOOL UA RBC 11 /HPF 0 - 2 01/18/2017 [facility] URINE AND STOOL UA Urobilinogen <=1.0 mg/dL 0.1 - 1.0 01/18/2017 [facility] URINE AND STOOL UA Hyal Cast 1 /LPF 0 - 2 01/18/2017 [facility] URINE AND STOOL UA WBC 6 /HPF 0 - 5 01/18/2017 [facility] URINE AND STOOL UA Blood Moderate *ABN* (01/18/17 3:45 AM) Negative 01/18/2017 [facility] URINE AND STOOL UA Sq Epi Moderate /LPF Few /LPF 01/18/2017 [facility] URINE AND STOOL UA Leuk Est Negative (01/18/17 3:45 AM) Negative 01/18/2017 [facility] URINE AND STOOL UA Nitrite Negative (01/18/17 3:45 AM) Negative 01/18/2017 [facility] URINE AND STOOL UA Bili Negative *NA* (01/18/17 3:45 AM) Negative 01/18/2017 [facility] URINE AND STOOL UA Spec Grav 1.016 <=1.030 01/18/2017 [facility] URINE AND STOOL UA pH 5.0 5.0 - 8.0 01/18/2017 [facility] URINE AND STOOL UA Turbidity Slight *ABN* (01/18/17 3:45 AM) Clear 01/18/2017 [facility] URINE AND STOOL UA Color Yellow *NA* (01/18/17 3:45 AM) Yellow 01/18/2017 [facility] Abdomen RUQ US Abdomen RUQ US Abdomen RUQ US 01/18/2017 5:56 AM CDT Ordering Physician: Rosa Mata MD CLINICAL INDICATION: - PAIN; COMPARISON: None TECHNIQUE: Real-time grayscale and limited color sonographic examination of the abdomen was performed with standard technique. FINDINGS: LIVER: The visualized liver shows normal contour, size, and morphology with normal parenchymal echo texture. Main portal vein is patent with hepatopedal flow. No intrahepatic or extrahepatic biliary ductal dilatation is present. Common bile duct measuring 2 mm. GALLBLADDER: There are no gallstones, gallbladder sludge, pericholecystic fluid or wall thickening. PANCREAS: Pancreas is normal. KIDNEY: Right kidney is normal in size and echogenicity, without hydronephrosis, mass, or calculus. The right kidney measures 10.6 x 5.4 x 5 cm. INFERIOR VENA CAVA: Visualized portions of the IVC are unremarkable. ASCITES: No free fluid is visualized. IMPRESSION: Negative study. SL: [id number] 01/18/2017 - - Read by: Roger Pineda MD Dictated Date/time: 01/18/17 07:20 Electronically Signed by: Roger Pineda MD 01/18/17 07:21 FINAL REPORT [facility] Chest 1view DX Chest 1view DX Clinical Indication: - weakness; Comparison: None Technique: X-ray chest frontal projection FINDINGS: There is no consolidation, pleural effusion or pneumothorax. The heart is normal in size. The mediastinum and ron are unremarkable. The visualized bones and soft tissues are within normal limits. IMPRESSION: No chest radiographic evidence of acute cardiopulmonary disease. SL: [id number] 01/18/2017 - - Read by: Lupe Walter MD Dictated Date/time: 01/18/17 06:04 Electronically Signed by: Lupe Walter MD 01/18/17 06:05 FINAL REPORT [facility] Sinus wo contrast CT Sinus wo contrast CT EXAMINATION: CT sinus without contrast. DATE: 02/22/2014. INDICATION: Pharyngitis. DISCUSSION: Noncontrast images of the paranasal sinuses are performed with multiplanar reformatting. There are no similar studies for comparison at this institution. There is approximately 3 mm diameter area of focal mucosal thickening near the ostium of the right maxillary sinus area does not result in complete obstruction of the ostium. The remainder of the sinuses clear. The left ostiomeatal unit is unremarkable area. The frontal, ethmoid, and sphenoid sinuses are clear. There is a tiny osteoma right anterior ethmoid air cells. The anterior aspect of the inferior turbinates are significant smaller than expected and may be partially resected. Mucosa on the remainder of the turbinates is unremarkable area there is some deviation of the cartilaginous septum to the right, and there are some hypertrophy of mucosal along the septum anteriorly. There is no significant nasal obstruction. Nasopharynx demonstrates a focal narrowing area of nodularity on the left side just medial to the fossa of Rosenmller. IMPRESSION: Minimal sinus disease in the right ostiomeatal unit. Suggestion of prior resection of the inferior turbinates. 02/22/2014 - - Read by: Timothy Duarte MD Dictated Date/time: 02/22/14 16:15 Electronically Signed by: Timothy Duarte MD 02/22/14 16:21 [facility] Vital Signs Vital Sign Value Date Comments Source Respitory Rate 17 01/25/2017 [facility] Heart Rate 88 01/25/2017 [facility] Systolic (mm Hg) 119 01/25/2017 [facility] Diastolic (mm Hg) 80 01/25/2017 [facility] Temperature Oral (F) 99.3 F 01/25/2017 [facility] Respitory Rate 18 01/25/2017 [facility] Systolic (mm Hg) 112 01/25/2017 [facility] Diastolic (mm Hg) 68 01/25/2017 [facility] Heart Rate 90 01/25/2017 [facility] Systolic (mm Hg) 103 01/25/2017 [facility] Diastolic (mm Hg) 68 01/25/2017 [facility] Respitory Rate 17 01/25/2017 [facility] Temperature Oral (F) 98.3 F 01/25/2017 [facility] Heart Rate 100 01/25/2017 [facility] Temperature Oral (F) 98.0 F 01/25/2017 [facility] Height 167.64 cm 01/24/2017 [facility] BMI Calculated 21.03 01/24/2017 [facility] Weight 59.091 01/24/2017 [facility] Weight 59.091 01/24/2017 [facility] Height 167.64 cm 01/24/2017 [facility] BMI Calculated 21.03 01/24/2017 [facility] Systolic (mm Hg) 94 01/23/2017 [facility] Diastolic (mm Hg) 54 01/23/2017 [facility] Heart Rate 96 01/23/2017 [facility] Respitory Rate 16 01/23/2017 [facility] Systolic (mm Hg) 95 01/23/2017 [facility] Diastolic (mm Hg) 60 01/23/2017 [facility] Temperature Oral (F) 98.2 F 01/23/2017 [facility] Heart Rate 105 01/23/2017 [facility] Temperature Oral (F) 98.0 F 01/23/2017 [facility] Systolic (mm Hg) 99 01/23/2017 [facility] Diastolic (mm Hg) 63 01/23/2017 [facility] Respitory Rate 18 01/23/2017 [facility] Heart Rate 100 01/23/2017 [facility] Temperature Oral (F) 99.2 F 01/23/2017 [facility] Respitory Rate 18 01/23/2017 [facility] BMI Calculated 17.63 01/18/2017 [facility] Height 167.64 cm 01/18/2017 [facility] Weight 49.545 01/18/2017 [facility] Weight 59.091 01/18/2017 [facility] Encounters Location Location Details Encounter Type Encounter Number Reason For Visit Attending Provider ADM Date DC Date Status Source [facility] [id number] Samer Fakhri 02/22/2014 [facility] [id number] Kong Marcos 01/18/2017 01/23/2017 [facility] [id number] Patria Simpson 01/24/2017 01/25/2017 [facility] Procedures Procedure Code Date Perfomer Comments Source Bladder augmentation [id number] [facility] Laparoscopy [id number] [facility] Ovarian cystectomy [id number] [facility] Sinusotomy [id number] [facility]
--- OUTSIDE RECORDS SUMMARY | 2018-07-03 16:27 | XMS REPORT | Summary of Care ---
Author Author [facility] Organization [facility] Address Unknown Phone Unavailable Encounter HQ Vicki(PRECIOUS) [id number] Date(s): 01/23/17 - 01/25/17 [facility] [address] [place] [address]- [phone] Discharge Disposition: Home or Self Care Attending Physician: Patria Simpson MD Admitting Physician: Patria Simpson MD Vital Signs 1 2 3 Most recent to oldest [Reference Range]: 167.64 cm (01/24/17 12:47 AM) 167.64 cm (01/23/17 7:14 PM) Height 99.3 DegF *HI* (01/25/17 3:19 PM) 98.3 DegF (01/25/17 8:18 AM) 98.0 DegF (01/25/17 3:31 AM) Temperature Oral [96.4-99.1 DegF] 119/80 mmHg (01/25/17 3:19 PM) 112/68 mmHg (01/25/17 11:49 AM) 103/68 mmHg (01/25/17 11:20 AM) Blood Pressure [90-140/60-90 mmHg] 17 BRMIN (01/25/17 3:19 PM) 18 BRMIN (01/25/17 11:49 AM) 17 BRMIN (01/25/17 11:20 AM) Respiratory Rate [14-20 BRMIN] 88 bpm (01/25/17 3:19 PM) 90 bpm (01/25/17 11:49 AM) 100 bpm (01/25/17 8:18 AM) Peripheral Pulse Rate [60-100 bpm] 59.091 kg (01/24/17 12:47 AM) 59.091 kg (01/23/17 7:14 PM) Weight 21.03 m2 (01/24/17 12:47 AM) 21.03 m2 (01/23/17 7:14 PM) Body Mass Index Problem List Condition Effective Dates Status Health Status Informant Fibromyalgia(Confirm Resolved ed) Hearing Active loss(Confirmed) Interstitial Active cystitis(Confirmed)1 Moderate Active Chronic ; protein-calorie malnutrition(Confirm ed) Osteoporosis(Confirm Active ed) 1bladder Allergies, Adverse Reactions, Alerts Substance Reaction Severity Status NKDA Active Medications acetaminophen-hydrocodone 325 mg-5 mg oral tablet 1 tab, Route: PO, Drug Form: TAB, Dosing Weight 59.091, kg, Q4H, PRN Pain Score 4-6, Start date: 01/23/17 23:42:00 CDT, Duration: 30 day, Stop date: 02/22/17 23 :41:00 CDT Notes: (Same as: Hamilton 325/5) Do not exceed 4gm/day of acetaminophen. Start Date: 01/23/17 Stop Date: 01/25/17 Status: Discontinued Aciphex 20 mg oral enteric coated tablet 20 mg=1 tab, PO, Daily, # 30 tab, 1 Refill(s) Start Date: 01/24/17 Stop Date: 01/25/17 Status: Discontinued Carafate 1 gm, 1 tab, Route: PO, Drug form: TAB, BID, Dosing Weight 59.091, kg, Start haile e: 01/24/17 9:00:00 CDT, Duration: 30 day, Stop date: 02/22/17 17:00:00 CDT Notes: May interfere w/enteral feeds - Take 1 hr before or 2 hr after antacids, dairy pdt, meals & minerals - On empty stomach.For patients unable to swallow tablet, dissolve in 10mL - 30mL of water or juice and stir before giving. (Same As: Carafate) Start Date: 01/24/17 Stop Date: 01/25/17 Status: Discontinued Carafate 1 g oral tablet 1 gm=1 tab, PO, BID, # 60 tab, 2 Refill(s) Start Date: 01/25/17 Stop Date: 04/25/17 Status: Ordered Carafate 1 g oral tablet 1 gm=1 tab, PO, BID, # 120 tab, 0 Refill(s) Start Date: 01/24/17 Stop Date: 01/25/17 Status: Discontinued cefTRIAXone + sodium chloride 0.9% INJ 100 mL 1 gm, Route: IVPB, ONCE, Dosing Weight 59.091, kg, Priority: STAT, Start date: 0 01/23/17 23:15:00 CDT, Duration: 1 doses or times, Stop date: 01/23/17 23:15:00 C DT, ABX Indication: Bacteremia Notes: (Same As: Rocephin).Use with 100 mL NS and infuse over 30 min MEDICA TION WASTE Product Size: 1000 mgProduct Wasted: ___ mg Start Date: 01/23/17 Stop Date: 01/23/17 Status: Completed Diflucan 200 mg oral tablet 200 mg=1 tab, PO, Daily, X 5 day, # 5 tab, 0 Refill(s) Start Date: 01/25/17 Stop Date: 01/30/17 Status: Ordered DULoxetine 30 mg, 1 cap, Route: PO, Drug form: DRC, Daily, Dosing Weight 59.091, kg, Start date: 01/24/17 9:00:00 CDT, Duration: 30 day, Stop date: 02/22/17 9:00:00 CDT Notes: (Same as: Cymbalta) (Do Not Crush) Start Date: 01/24/17 Stop Date: 01/25/17 Status: Discontinued morphine Sulfate 2 mg, 1 mL, Route: IVP, Drug form: SOLN, Q4H, Dosing Weight 59.091, kg, PRN Pain Score 7-10, Start date: 01/23/17 23:42:00 CDT, Stop date: 02/22/17 23:41:00 CDT Start Date: 01/23/17 Stop Date: 01/25/17 Status: Discontinued ondansetron 4 mg, 2 mL, Route: IVP, Drug form: INJ, Q6H, Dosing Weight 59.091, kg, PRN Nause a & Vomiting, Start date: 01/23/17 23:42:00 CDT, Duration: 30 day, Stop date: 02/22/17 23:41:00 CDT Notes: (Same as: Zofran) MEDICATION WASTE Product Size: 4 mgProduct Was delmy: ___ mg Start Date: 01/23/17 Stop Date: 01/25/17 Status: Discontinued pantoprazole 80 mg + sodium chloride 0.9% INJ 100 mL 100 mL, Rate: 10 ml/hr, Infuse over: 10 hr, Route: IVPB, Dosing Weight 59.091 kg , Total Volume: 100, Infuse at 8 mg / hr for 72 hours for GI bleeding, Start haile e: 01/23/17 23:55:00 CDT, Duration: 72 hr, Stop date: 01/26/17 23:54:00 CDT Start Date: 01/23/17 Stop Date: 01/25/17 Status: Discontinued Protonix 40 mg oral enteric coated tablet 40 mg=1 tab, PO, Daily, # 30 tab, 1 Refill(s) Start Date: 01/25/17 Status: Ordered Saline Flush 0.9% 10 mL, Route: IVP, Drug Form: INJ, Dosing Weight 59.091, kg, PRN, PRN Line Flush , Start date: 01/23/17 19:37:00 CDT, Duration: 30 day, Stop date: 02/22/17 19:36 :00 CDT Notes: (Same as: BD Posiflush) Start Date: 01/23/17 Stop Date: 01/24/17 Status: Discontinued Sodium Chloride 0.9% (Bolus) IV 1,000 mL, 1000 ml/hr, Infuse Over: 1 hr, Route: IV, 1,000, Drug form: INJ, ONCE, Priority: STAT, Dosing Weight 59.091 kg, Start date: 01/23/17 23:15:00 CDT, Dur ation: 1 doses or times, Stop date: 01/23/17 23:15:00 CDT Start Date: 01/23/17 Stop Date: 01/23/17 Status: Completed Sodium Chloride 0.9% (Bolus) IV 1,000 mL, 1000 ml/hr, Infuse Over: 1 hr, Route: IV, 1,000, Drug form: INJ, ONCE, Priority: STAT, Dosing Weight 59.091 kg, Start date: 01/23/17 19:55:00 CDT, Dur ation: 1 doses or times, Stop date: 01/23/17 19:55:00 CDT Start Date: 01/23/17 Stop Date: 01/23/17 Status: Completed sodium chloride 0.9% INJ 250 mL 250 mL, Rate: museum tour guide for use with blood product administration, Dosing Weight 5 9.091, kg, Route: IV, Total Volume: 250, Start Date: 01/23/17 23:45:00 CDT, Dura tion: 30 day, Stop date: 02/22/17 23:44:00 CDT, Replace Every: 24 hr Start Date: 01/23/17 Stop Date: 01/25/17 Status: Discontinued Sodium Chloride 0.9% IV (Sodium Chloride 0.9% (Bolus) IV) 1,000 mL, 2,000 ml/hr, Infuse Over: 0.5 hr, Route: IV, 1,000, Drug form: INJ, ON CE, Priority: STAT, Dosing Weight 59.091 kg, Start date: 01/23/17 19:37:00 CDT, Duration: 1 doses or times, Stop date: 01/23/17 19:37:00 CDT Start Date: 01/23/17 Stop Date: 01/23/17 Status: Completed Sodium Chloride 0.9% IV 1000 mL 1,000 mL, Rate: 25 ml/hr, Infuse over: 40 hr, Route: IV, Dosing Weight 59.091 kg , Total Volume: 1,000, Start date: 01/25/17 10:21:00 CDT, Duration: 30 day, Stop date: 02/24/17 10:20:00 CDT Start Date: 01/25/17 Stop Date: 01/25/17 Status: Discontinued Results BLOOD BANK RESULTS 1 2 3 Most recent to oldest [Reference Range]: O POS *Unknown* (01/24/17 5:35 AM) ABO/Rh Negative (01/24/17 5:35 AM) Antibody Scrn Product available 1 (01/23/17 11:44 PM) RBC product 1Result Comment: 01/24/2017 06:33 [id number] notified yosvany in cdu ELECTROLYTES 1 2 3 Most recent to oldest [Reference Range]: 141 mEq/L (01/25/17 3:37 AM) 143 mEq/L (01/23/17 7:53 PM) Sodium Lvl [135-145 mEq/L] 3.1 mEq/L *LOW* (01/25/17 3:37 AM) 3.5 mEq/L (01/23/17 7:53 PM) Potassium Lvl [3.5-5.1 mEq/L] 103 mEq/L (01/25/17 3:37 AM) 105 mEq/L (01/23/17 7:53 PM) Chloride Lvl [95-109 mEq/L] 30 mEq/L (01/25/17 3:37 AM) 32 mEq/L (01/23/17 7:53 PM) CO2 [24-32 mEq/L] 11.1 mEq/L (01/25/17 3:37 AM) 9.5 mEq/L *LOW* (01/23/17 7:53 PM) AGAP [10.0-20.0 mEq/L] CHEM PANEL 1 2 3 Most recent to oldest [Reference Range]: 0.33 mg/dL *LOW* (01/25/17 3:37 AM) 0.35 mg/dL *LOW* (01/23/17 7:53 PM) Creatinine Lvl [0.50-1.40 mg/dL] 130 mL/min/1.73m2 1 *NA* (01/25/17 3:37 AM) 127 mL/min/1.73m2 2 *NA* (01/23/17 7:53 PM) eGFR 5 mg/dL *LOW* (01/25/17 3:37 AM) 7 mg/dL (01/23/17 7:53 PM) BUN [7-22 mg/dL] 15 (01/25/17 3:37 AM) 20 (01/23/17 7:53 PM) B/C Ratio [6-25] 85 mg/dL (01/25/17 3:37 AM) 96 mg/dL (01/23/17 7:53 PM) Glucose Lvl [70-99 mg/dL] 5.9 g/dL *LOW* (01/25/17 3:37 AM) 5.2 g/dL *LOW* (01/23/17 7:53 PM) Total Protein [6.4-8.4 g/dL] 2.5 g/dL *LOW* (01/25/17 3:37 AM) 2.3 g/dL *LOW* (01/23/17 7:53 PM) Albumin Lvl [3.5-5.0 g/dL] 3.4 g/dL (01/25/17 3:37 AM) 2.9 g/dL (01/23/17 7:53 PM) Globulin [2.7-4.2 g/dL] 0.7 (01/25/17 3:37 AM) 0.8 (01/23/17 7:53 PM) A/G Ratio [0.7-1.6] 8.0 mg/dL *LOW* (01/25/17 3:37 AM) 7.9 mg/dL *LOW* (01/23/17 7:53 PM) Calcium Lvl [8.5-10.5 mg/dL] 35 unit/L (01/25/17 3:37 AM) 34 unit/L (01/23/17 7:53 PM) ALT [0-65 unit/L] 102 unit/L *HI* (01/25/17 3:37 AM) 124 unit/L *HI* (01/23/17 7:53 PM) AST [0-37 unit/L] 123 unit/L (01/25/17 3:37 AM) 116 unit/L (01/23/17 7:53 PM) Alk Phos [39-136 unit/L] 0.7 mg/dL (01/25/17 3:37 AM) 0.7 mg/dL (01/23/17 7:53 PM) Bili Total [0.2-1.3 mg/dL] 1.0 mMol/L (01/23/17 7:53 PM) Lactic Acid Lvl [0.5-2.2 mMol/L] 1.28 ng/mL *HI* (01/23/17 7:53 PM) Procalcitonin Lvl [0.00-0.10 ng/mL] 1Result Comment: The eGFR is calculated using the [...] from the National Kidney Disease Education Program ( NKDEP) which additionally recommends that when the eGFR is used in patients with extremes of body mass index for purposes of drug dosing, the eGFR should be mul tiplied by the estimated BMI. 2Result Comment: The eGFR is calculated using the [...] from the National Kidney Disease Education Program ( NKDEP) which additionally recommends that when the eGFR is used in patients with extremes of body mass index for purposes of drug dosing, the eGFR should be mul tiplied by the estimated BMI. CARDIAC ENZYMES 1 2 3 Most recent to oldest [Reference Range]: 148 unit/L (01/23/17 7:53 PM) Total CK [12-191 unit/L] 1.0 ng/mL (01/23/17 7:53 PM) CK MB [0.5-3.6 ng/mL] 0.7 (01/23/17 7:53 PM) CK MB Index [0.0-2.5] 0.05 ng/mL (01/23/17 7:53 PM) Troponin-I [0.00-0.40 ng/mL] DRUG SCREEN 1 2 3 Most recent to oldest [Reference Range]: Negative *NA* (01/23/17 8:47 PM) U Amph Scr [Negative] Negative *NA* (01/23/17 8:47 PM) U Barbra Scr [Negative] Positive *ABN* (01/23/17 8:47 PM) U Benzodia Scr [Negative] Negative *NA* (01/23/17 8:47 PM) U Cocaine Scr [Negative] Positive *ABN* (01/23/17 8:47 PM) U Opiate Scr [Negative] Negative *NA* (01/23/17 8:47 PM) U Phencyc Scr [Negative] Negative *NA* (01/23/17 8:47 PM) U Cannab Scr [Negative] See Note (01/23/17 8:47 PM) UDS Note URINE AND STOOL 1 2 3 Most recent to oldest [Reference Range]: Clear (01/23/17 8:47 PM) UA Turbidity [Clear] Ltyellow *NA* (01/23/17 8:47 PM) UA Color 7.0 (01/23/17 8:47 PM) UA pH [5.0-8.0] 1.005 (01/23/17 8:47 PM) UA Spec Grav [<=1.030] Negative mg/dL *NA* (01/23/17 8:47 PM) UA Glucose [Negative mg/dL] Small *ABN* (01/23/17 8:47 PM) UA Blood [Negative] Negative mg/dL *NA* (01/23/17 8:47 PM) UA Ketones [Negative mg/dL] Negative mg/dL (01/23/17 8:47 PM) UA Protein [Negative mg/dL] <=1.0 mg/dL *NA* (01/23/17 8:47 PM) UA Urobilinogen [0.1-1.0 mg/dL] Negative *NA* (01/23/17 8:47 PM) UA Bili [Negative] Negative (01/23/17 8:47 PM) UA Leuk Est [Negative] Negative (01/23/17 8:47 PM) UA Nitrite [Negative] <1 /HPF (01/23/17 8:47 PM) UA WBC [0-5 /HPF] <1 /HPF (01/23/17 8:47 PM) UA RBC [0-2 /HPF] Occasional /LPF *NA* (01/23/17 8:47 PM) UA Sq Epi [Few /LPF] HEMATOLOGY 1 2 3 Most recent to oldest [Reference Range]: 10.4 K/CMM (01/25/17 2:50 PM) 10.8 K/CMM *HI* (01/24/17 3:40 PM) 9.5 K/CMM (01/23/17 7:53 PM) WBC [3.7-10.4 K/CMM] 2.82 M/CMM *LOW* (01/25/17 2:50 PM) 2.82 M/CMM *LOW* (01/24/17 3:40 PM) 2.33 M/CMM *LOW* (01/23/17 7:53 PM) RBC [4.20-5.40 M/CMM] 9.1 g/dL *LOW* (01/25/17 2:50 PM) 8.4 g/dL *LOW* (01/24/17 11:02 PM) 8.9 g/dL *LOW* (01/24/17 3:40 PM) Hgb [12.0-16.0 g/dL] 26.7 % *LOW* (01/25/17 2:50 PM) 24.6 % *LOW* (01/24/17 11:02 PM) 26.4 % *LOW* (01/24/17 3:40 PM) Hct [36.0-48.0 %] 94.8 fL (01/25/17 2:50 PM) 93.6 fL (01/24/17 3:40 PM) 96.6 fL (01/23/17 7:53 PM) MCV [80.0-98.0 fL] 32.3 pg *HI* (01/25/17 2:50 PM) 31.8 pg *HI* (01/24/17 3:40 PM) 32.9 pg *HI* (01/23/17 7:53 PM) MCH [27.0-31.0 pg] 34.0 g/dL (01/25/17 2:50 PM) 33.9 g/dL (01/24/17 3:40 PM) 34.0 g/dL (01/23/17 7:53 PM) MCHC [32.0-36.0 g/dL] 19.7 % *HI* (01/25/17 2:50 PM) 19.9 % *HI* (01/24/17 3:40 PM) 16.3 % *HI* (01/23/17 7:53 PM) RDW [11.5-14.5 %] 92 K/CMM *LOW* (01/25/17 2:50 PM) 96 K/CMM *LOW* (01/24/17 3:40 PM) 77 K/CMM *LOW* (01/23/17 7:53 PM) Platelet [133-450 K/CMM] 8.9 fL (01/25/17 2:50 PM) 9.5 fL (01/24/17 3:40 PM) 9.9 fL (01/23/17 7:53 PM) MPV [7.4-10.4 fL] 36.1 % *LOW* (01/25/17 2:50 PM) 48.5 % (01/24/17 3:40 PM) 49.2 % (01/23/17 7:53 PM) Segs [45.0-75.0 %] 49.7 % *HI* (01/25/17 2:50 PM) 40.7 % *HI* (01/24/17 3:40 PM) 37.5 % (01/23/17 7:53 PM) Lymphocytes [20.0-40.0 %] 13.4 % *HI* (01/25/17 2:50 PM) 10.2 % (01/24/17 3:40 PM) 12.5 % *HI* (01/23/17 7:53 PM) Monocytes [2.0-12.0 %] 0.1 % (01/25/17 2:50 PM) 0.1 % (01/24/17 3:40 PM) 0.2 % (01/23/17 7:53 PM) Eosinophils [0.0-4.0 %] 0.7 % (01/25/17 2:50 PM) 0.5 % (01/24/17 3:40 PM) 0.6 % (01/23/17 7:53 PM) Basophils [0.0-1.0 %] 3.8 K/CMM (01/25/17 2:50 PM) 5.2 K/CMM (01/24/17 3:40 PM) 4.7 K/CMM (01/23/17 7:53 PM) Segs-Bands # [1.5-8.1 K/CMM] 5.2 K/CMM (01/25/17 2:50 PM) 4.4 K/CMM (01/24/17 3:40 PM) 3.5 K/CMM (01/23/17 7:53 PM) Lymphocytes # [1.0-5.5 K/CMM] 1.4 K/CMM *HI* (01/25/17 2:50 PM) 1.1 K/CMM *HI* (01/24/17 3:40 PM) 1.2 K/CMM *HI* (01/23/17 7:53 PM) Monocytes # [0.0-0.8 K/CMM] 0.1 K/CMM (01/25/17 2:50 PM) 0.1 K/CMM (01/24/17 3:40 PM) 0.1 K/CMM (01/23/17 7:53 PM) Basophils # [0.0-0.2 K/CMM] Normal (01/23/17 7:53 PM) RBC Morph Moderate *ABN* (01/24/17 3:40 PM) Polychrom [None Seen] 1+ (01/24/17 3:40 PM) Hypochrom [None Seen] Normal (01/24/17 3:40 PM) Normal (01/23/17 7:53 PM) Plt Morph 14.9 seconds *HI* (01/23/17 7:53 PM) PT [12.0-14.7 seconds] 1.15 (01/23/17 7:53 PM) INR [0.85-1.17] 37.4 seconds *HI* (01/23/17 7:53 PM) PTT [22.9-35.8 seconds] Immunizations No data available for this section Procedures Procedure Date Related Diagnosis Body Site Bladder augmentation Laparoscopy Ovarian cystectomy Sinusotomy Social History Social History Type Response Alcohol Never Smoking Status Current some day smoker; Type: Cigars; Tobacco use per day: 2; Exposure to Tobacco Smoke None; Cigarette Smoking Last 365 Days Yes; Reg Smoking Cessation Counseling No1 1Patient given smoking cessation education. Verbalized understanding. Assessment and Plan Extracted from: Title: UIP Progress Note * Author: Patria Simpson MD Date: 01/25/17 Impression and Plan ASSESSMENT Possible Upper GI Bleed Hypotension/Hypovolemia/Dehydration Acute Blood Loss Anemia Hx of PUD Fibromyalgia PLAN: Regular Diet after EGD today if ok by GI PPI Drip IVF Hydration transfuse if Hb < 7 GI Consult appreciated DVT PPx: Ambulation Dispo: pending EGD this morning; likely d/c after EGD Extracted from: Title: Clinical Document Author: Laurita Aldana MD Date: 01/23/17 CC: hypotension HPI: 51 yo female with a history of fibromyalgia and interstitial cystitis, recently admitted for fever (presumed source tract), treated with antibiotics, and discharged earlier this morning with po antibiotics. Upon reaching home, she noted herself to be subjectively febrile and dizzy. Her blood pressure at home was apparently 70s/50s. She was brought to the ER by EMS. In the ER, her BP was initially 80s/50, and responded to 2 L IVF, now in the 110/80s. She is complaining of intractable generalized pain, but denies dysuria, nausea, diarrhea, or other problems. Her Hgb in the ER was 7.7. 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 ROS: all 12 systems reviewed, negative except as above PMH: peptic ulcers, fibromyalgia, cystitis PSH: hernia, shoulder surgery Home Meds: Hamilton. SH: (+) tobacco use FH: DM2, HTN Physical: Vitals: HR 90s. BP 80/50s--> 110/80s Gen: Alert, oriented x3, in position, under many blankets. limited involvement in interview. keeps asking for iv pain meds. HEENT: moist membranes, no jvd Resp: CTAB Cardio: RRR, no mrg GI: soft, NT, ND, normal BS Neuro: intact grossly. responds to light palpation of back, abd, or arms with out of proportion pain response MSK: normal mass, no edema. : not examined Psych: abnormal affect Labs/Imaging: Hgb 7.7 previous urine culture- e coli Assessment/Plan: Volume depletion -give 3L IVF in the ER -transfuse 1U pRBCs Hypotension -improving normocytic Anemia -related to PUD? -transfuse -consult GI in the morning Peptic ulcer disease -PPI, IV Fibromyalgia -duloxetine, start now Chronic opioid use -norco prn Urinary tract infection -received 6 days of appropriate IV antibiotics (started 18June). -stop antibiotics.
--- OUTSIDE RECORDS SUMMARY | 2018-07-03 16:27 | XMS REPORT | Summary of Care ---
Author Organization Unknown Address Unknown Phone Unavailable Encounter HQ Sandrodamaris_kristen(PRECIOUS) [id number] Date(s): 02/22/14 - 02/22/14 [facility] Outpatient Imaging [address] Discharge Disposition: Home Physician Attending: Jose Drummond MD Reason for Visit 472.0 - CHRONIC RHINITI Problem List No data available for this section Allergies, Adverse Reactions, Alerts No data available for this section Medications No data available for this section Medications Administered During Your Visit No data available for this section Immunizations No data available for this section
--- OUTSIDE RECORDS SUMMARY | 2018-07-03 16:27 | XMS REPORT | Summary of Care ---
Author Author [facility] Organization [facility] Address Unknown Phone Unavailable Encounter SIMA Cohen(PRECIOUS) [id number] Date(s): 01/18/17 - 01/23/17 [facility] [address] [place] [address]- Discharge Disposition: Home or Self Care Attending Physician: Kong Rodríguez MD Admitting Physician: Kong Rodríguez MD Vital Signs 1 2 3 Most recent to oldest [Reference Range]: 167.64 cm (01/18/17 6:15 AM) Height 98.2 DegF (01/23/17 7:21 AM) 98.0 DegF (01/23/17 5:34 AM) 99.2 DegF *HI* (01/23/17 12:15 AM) Temperature Oral [96.4-99.1 DegF] 94/54 mmHg (01/23/17 9:04 AM) 95/60 mmHg (01/23/17 7:21 AM) 99/63 mmHg (01/23/17 5:34 AM) Blood Pressure [90-140/60-90 mmHg] 16 BRMIN (01/23/17 7:21 AM) 18 BRMIN (01/23/17 5:34 AM) 18 BRMIN (01/23/17 12:15 AM) Respiratory Rate [14-20 BRMIN] 96 bpm (01/23/17 9:04 AM) 105 bpm *HI* (01/23/17 7:21 AM) 100 bpm (01/23/17 5:34 AM) Peripheral Pulse Rate [60-100 bpm] 49.545 kg (01/18/17 6:15 AM) 59.091 kg (01/18/17 3:13 AM) Weight 17.63 m2 (01/18/17 6:15 AM) Body Mass Index Problem List Condition Effective [...] CDT, Duration: 30 day, Stop date: 02/17/17 5:5 5:00 CDT Notes: (Same as: [place] 325/5) Do not exceed 4gm/day of acetaminophen. Start Date: 01/18/17 Stop Date: 01/23/17 Status: Discontinued calcium gluconate + sodium chloride 0.9% INJ 100 mL 3 gm, 30 mL, Route: IVPB, PRN, Dosing Weight 49.545, kg, PRN Abnormal Lab Result , For NON-ICU Patients Only., Start date: 01/22/17 16:30:00 CDT, Duration: 30 da y, Stop date: 02/21/17 16:29:00 CDT Notes: WASTE: F/P - Sink; E - Municipal Trash Bin Start Date: 01/22/17 Stop Date: 01/23/17 Status: Discontinued calcium gluconate + sodium chloride 0.9% INJ 100 mL 2 gm, 20 mL, Route: IVPB, PRN, Dosing Weight 49.545, kg, PRN Abnormal Lab Result , For NON-ICU Patients Only., Start date: 01/22/17 16:30:00 CDT, Duration: 30 da y, Stop date: 02/21/17 16:29:00 CDT Notes: WASTE: F/P - Sink; E - Municipal Trash Bin Start Date: 01/22/17 Stop Date: 01/23/17 Status: Discontinued cefdinir 300 mg oral capsule 300 mg=1 cap, PO, [id number], # 14 cap, 0 Refill(s), other Start Date: 01/23/17 Stop Date: 01/23/17 Status: Completed cefdinir 300 mg oral capsule 300 mg=1 cap, PO, [id number], # 14 cap, 0 Refill(s) Start Date: 01/23/17 Stop Date: 01/23/17 Status: Completed cefdinir 300 mg oral capsule 300 mg, 1 cap, Route: PO, Drug form: CAP, [id number], Dosing Weight 49.545, kg, Sta rt date: 01/22/17 18:00:00 CDT, Duration: 30 day, Stop date: 02/21/17 6:00:00 CD T Notes: (Same As: Omnicef) Start Date: 01/22/17 Stop Date: 01/23/17 Status: Discontinued docusate 100 mg, 1 cap, Route: PO, Drug form: CAP, BID, Dosing Weight 59.091, kg, Start d ate: 01/18/17 9:00:00 CDT, Duration: 30 day, Stop date: 02/16/17 17:00:00 CDT Notes: (Same as: Colace) (Do Not Crush) Start Date: 01/18/17 Stop Date: 01/23/17 Status: Discontinued Flagyl 500 mg, 100 mL, Route: IV, Drug form: INJ, [id number], Dosing Weight 49.545, kg, Sta rt date: 01/21/17 23:00:00 CDT, Duration: 30 day, Stop date: 02/20/17 15:00:00 C DT, ABX Indication: Infectious Diarrhea Notes: (Same as: Flagyl) Avoid alcohol. Start Date: 01/21/17 Stop Date: 01/23/17 Status: Discontinued Flagyl 500 mg oral tablet 500 mg=1 tab, PO, Q8H, X 7 day, # 21 tab, 0 Refill(s) Start Date: 01/23/17 Stop Date: 01/25/17 Status: Discontinued Imodium A-D 4 mg, 2 cap, Route: PO, Drug form: CAP, Q6H, Dosing Weight 49.545, kg, PRN Diarr hea, Start date: 01/21/17 22:30:00 CDT, Duration: 30 day, Stop date: 02/20/17 22 :29:00 CDT Notes: (Same as: Imodium) MAX adult dose is 8 caps/day Start Date: 01/21/17 Stop Date: 01/23/17 Status: Discontinued magnesium oxide 800 mg, 2 tab, Route: PO, Drug form: TAB, PRN, Dosing Weight 49.545, kg, PRN Abn ormal Lab Result, For NON-ICU Patients Only., Start date: 01/22/17 16:30:00 CDT, Duration: 30 day, Stop date: 02/21/17 16:29:00 CDT Notes: (Same as: Mag-Ox 400)Magnesium oxide [id number] elemental magnesiumDose= ____mg magnesium oxide (___mg elemental magnesium) Start Date: 01/22/17 Stop Date: 01/23/17 Status: Discontinued magnesium sulfate 2 gm, 50 mL, Route: IVPB, Drug form: INJ, PRN, Dosing Weight 49.545, kg, PRN Abn ormal Lab Result, For NON-ICU Patients Only., Start date: 01/22/17 16:30:00 CDT, Duration: 30 day, Stop date: 02/21/17 16:29:00 CDT Notes: WASTE: F/P - Sink; E - Municipal Trash Bin Start Date: 01/22/17 Stop Date: 01/23/17 Status: Discontinued magnesium sulfate 1 gm, 100 mL, Route: IVPB, Drug form: INJ, PRN, Dosing Weight 49.545, kg, PRN Ab normal Lab Result, For NON-ICU Patients Only., Start date: 01/22/17 16:30:00 CDT , Duration: 30 day, Stop date: 02/21/17 16:29:00 CDT Notes: WASTE: F/P - Sink; E - Municipal Trash Bin Start Date: 01/22/17 Stop Date: 01/23/17 Status: Discontinued magnesium sulfate 2 gm, 50 mL, Route: IVPB, Drug form: INJ, ONCE, Dosing Weight 49.545, kg, Total dose=2 gm, Start date: 01/20/17 11:40:00 CDT, Duration: 1 doses or times, Stop d ate: 01/20/17 11:40:00 CDT Notes: WASTE: F/P - Sink; E - Municipal Trash Bin Start Date: 01/20/17 Stop Date: 01/20/17 Status: Completed magnesium sulfate 2 gm in Water 50 ml 2 gm, 50 mL, Route: IVPB, Drug form: INJ, ONCE, Dosing Weight 49.545, kg, Start date: 01/22/17 16:34:00 CDT, Duration: 2 hr, Stop date: 01/22/17 16:34:00 CDT Notes: WASTE: F/P - Sink; E - Municipal Trash Bin Start Date: 01/22/17 Stop Date: 01/22/17 Status: Completed [place] 10/325 oral tablet 1 tab, Route: PO, Drug Form: TAB, Dosing Weight 49.545, kg, TID, PRN Pain Score 4-6, Start date: 01/19/17 8:13:00 CDT, Duration: 30 day, Stop date: 02/18/17 8:1 2:00 CDT Notes: Do not exceed 4gm/day of acetaminophen. (Same as: [place] 325/10) Start Date: 01/19/17 Stop Date: 01/22/17 Status: Discontinued ondansetron 4 mg, 2 mL, Route: IVP, Drug form: INJ, Q6H, Dosing Weight 59.091, kg, PRN Nause a & Vomiting, Start date: 01/18/17 5:56:00 CDT, Duration: 30 day, Stop date: 02/17/17 5:55:00 CDT Notes: (Same as: César) MEDICATION WASTE Product Size: 4 mgProduct Was delmy: ___ mg Start Date: 01/18/17 Stop Date: 01/23/17 Status: Discontinued Paxil 20 mg, 2 tab, Route: PO, Drug form: TAB, Daily, Dosing Weight 49.545, kg, Start date: 01/22/17 9:00:00 CDT, Duration: 30 day, Stop date: 02/20/17 9:00:00 CDT Notes: (Same as: Paxil) Start Date: 01/22/17 Stop Date: 01/23/17 Status: Discontinued potassium chloride 10 mEq, 1 tab, Route: PO, Drug form: ERTAB, BID, Dosing Weight 49.545, kg, Start date: 01/21/17 9:00:00 CDT, Duration: 30 day, Stop date: 02/19/17 17:00:00 CDT Notes: (Same as: K-Dur 10)"Do Not Crush" With food and full glass of water Start Date: 01/21/17 Stop Date: 01/23/17 Status: Discontinued potassium chloride 20 mEq, Route: IVPB, Q2H, Dosing Weight 49.545, kg, Total dose=40 mEq, Start haile e: 01/21/17 10:00:00 CDT, Duration: 2 doses or times, Stop date: 01/21/17 12:00: 00 CDT, Central Line Start Date: 01/21/17 Stop Date: 01/21/17 Status: Canceled potassium chloride 40 mEq, 2 tab, Route: PO, Drug form: ERTAB, ONCE, Dosing Weight 49.545, kg, Star t date: 01/20/17 7:30:00 CDT, Stop date: 01/20/17 7:30:00 CDT Notes: (Same as: K-Dur 20)"Do Not Crush" With food and full glass of water Start Date: 01/20/17 Stop Date: 01/20/17 Status: Completed potassium chloride 40 mEq, 2 tab, Route: PO, Drug form: ERTAB, PRN, Dosing Weight 49.545, kg, PRN A bnormal Lab Result, Electrolyte replacement, Start date: 01/22/17 8:10:00 CDT, D uration: 30 day, Stop date: 02/21/17 8:09:00 CDT Notes: (Same as: K-Dur 20)"Do Not Crush" With food and full glass of water Start Date: 01/22/17 Stop Date: 01/23/17 Status: Discontinued potassium chloride 10 mEq, 100 mL, Route: IVPB, Drug form: INJ, PRN, Dosing Weight 49.545, kg, PRN Abnormal Lab Result, For NON-ICU Patients Only, Start date: 01/22/17 16:30:00 CD T, Duration: 30 day, Stop date: 02/21/17 16:29:00 CDT Notes: Infuse at a rate of 10 mEq/hr.(Same as: KCL) Start Date: 01/22/17 Stop Date: 01/23/17 Status: Discontinued potassium chloride 20 mEq, 1 tab, Route: PO, Drug form: ERTAB, PRN, Dosing Weight 49.545, kg, PRN A bnormal Lab Result, For NON-ICU Patients Only, Start date: 01/22/17 16:30:00 CDT , Duration: 30 day, Stop date: 02/21/17 16:29:00 CDT Notes: (Same as: K-Dur 20)"Do Not Crush" With food and full glass of water Start Date: 01/22/17 Stop Date: 01/23/17 Status: Discontinued potassium chloride 20 mEq, 15 mL, Route: NJ, Drug form: LIQ, PRN, Dosing Weight 49.545, kg, PRN Abn ormal Lab Result, For NON-ICU Patients Only, Start date: 01/22/17 16:30:00 CDT, Duration: 30 day, Stop date: 02/21/17 16:29:00 CDT Notes: (Same as: Potassium Chloride) Start Date: 01/22/17 Stop Date: 01/23/17 Status: Discontinued potassium chloride 10 mEq, 100 mL, Route: IVPB, Drug form: INJ, Q1H, Dosing Weight 49.545, kg, Tota l Dose=20 meq, Start date: 01/20/17 8:00:00 CDT, Duration: 2 doses or times, Sto p date: 01/20/17 9:00:00 CDT, Peripheral Line Notes: Infuse at a rate of 10 mEq/hr.(Same as: KCL) Start Date: 01/20/17 Stop Date: 01/20/17 Status: Completed potassium chloride 10 mEq, 100 mL, Route: IVPB, Drug form: INJ, Q1H, Dosing Weight 49.545, kg, Tota l Dose=40 meq, Start date: 01/21/17 10:00:00 CDT, Duration: 4 doses or times, St op date: 01/21/17 13:00:00 CDT, Peripheral Line Notes: Infuse at a rate of 10 mEq/hr.(Same as: KCL) Start Date: 01/21/17 Stop Date: 01/21/17 Status: Completed potassium chloride 10 mEq oral capsule, extended release 10 mEq=1 cap, PO, Daily, # 30 cap, 1 Refill(s) Start Date: 01/23/17 Stop Date: 01/25/17 Status: Discontinued potassium phosphate + sodium chloride 0.9% INJ 250 mL 15 mmol, 5 mL, Route: IVPB, PRN, Dosing Weight 49.545, kg, PRN Abnormal Lab Resu lt, For NON-ICU Patients Only., Start date: 01/22/17 16:30:00 CDT, Duration: 30 day, Stop date: 02/21/17 16:29:00 CDT Notes: (Same as: K Phosphate.) 1 mMol phoshate has 1.47 mEq potassium Infuse o maude 4 hours Start Date: 01/22/17 Stop Date: 01/23/17 Status: Discontinued potassium phosphate + sodium chloride 0.9% INJ 250 mL 30 mmol, 10 mL, Route: IVPB, PRN, Dosing Weight 49.545, kg, PRN Abnormal Lab Res ult, For NON-ICU Patients Only., Start date: 01/22/17 16:30:00 CDT, Duration: 30 day, Stop date: 02/21/17 16:29:00 CDT Notes: (Same as: K Phosphate.) 1 mMol phoshate has 1.47 mEq potassium Infuse o maude 4 hours Start Date: 01/22/17 Stop Date: 01/23/17 Status: Discontinued potassium phosphate-sodium phosphate 250 mg-280 mg-160 mg oral powder for recons titution 2 pkt, Route: PO, Drug Form: PDR/REC, Dosing Weight 49.545, kg, PRN, PRN Abnorma l Lab Result, For NON-ICU Patients Only, Start date: 01/22/17 16:30:00 CDT, Dura tion: 30 day, Stop date: 02/21/17 16:29:00 CDT Notes: (Same as: Phos-NaK) Each 1.5 gm pkt has 250mg phosphorous. Mix w/2.5oz w ater and stir. Start Date: 01/22/17 Stop Date: 01/23/17 Status: Discontinued Rocephin + sodium chloride 0.9% INJ 100 mL 1 gm, Route: IVPB, [id number], Dosing Weight 59.091, kg, Start date: 01/18/17 6:00: 00 CDT, Duration: 5 day, Stop date: 01/22/17 6:00:00 CDT, ABX Indication: Immuno compromised Host Prophylaxis Notes: (Same As: Rocephin).Use with 100 mL NS and infuse over 30 min MEDICA TION WASTE Product Size: 1000 mgProduct Wasted: ___ mg Start Date: 01/18/17 Stop Date: 01/22/17 Status: Completed Saline Flush 0.9% 10 ml, Route: IVP, Drug Form: INJ, Dosing Weight 59.091, kg, PRN, PRN Line Flush , Start date: 01/18/17 5:56:00 CDT, Duration: 30 day, Stop date: 02/17/17 5:55:0 0 CDT Notes: (Same as: BD Posiflush) Start Date: 01/18/17 Stop Date: 01/23/17 Status: Discontinued sodium chloride 0.45% 1000 ml INJ 1,000 mL 1,000 mL, Rate: 100 ml/hr, Infuse over: 10 hr, Route: IV, Dosing Weight 49.545 k g, Total Volume: 1,000, Start date: 01/22/17 0:03:00 CDT, Duration: 30 day, Stop date: 02/21/17 0:02:00 CDT Start Date: 01/22/17 Stop Date: 01/22/17 Status: Discontinued sodium chloride 0.45% 1000 ml INJ 1,000 mL 1,000 mL, Rate: 1,000 ml/hr, Infuse over: 1 hr, Route: IV, Dosing Weight 49.545 kg, Total Volume: 1,000, Start date: 01/22/17 0:06:00 CDT, Duration: 1 doses or times, Stop date: 01/22/17 1:05:00 CDT Start Date: 01/22/17 Stop Date: 01/22/17 Status: Completed Sodium Chloride 0.9% (Bolus) IV 1,000 mL, Infuse Over: 1 hr, Route: IV, ONCE, Priority: STAT, Dosing Weight 59.0 91 kg, Start date: 01/18/17 4:57:00 CDT, Duration: 1 doses or times, Stop date: 01/18/17 4:57:00 CDT Start Date: 01/18/17 Stop Date: 01/18/17 Status: Completed Sodium Chloride 0.9% (Bolus) IV 1,000 mL, Infuse Over: 1 hr, Route: IV, ONCE, Priority: STAT, Dosing Weight 59.0 91 kg, Start date: 01/18/17 3:24:00 CDT, Duration: 1 doses or times, Stop date: 01/18/17 3:24:00 CDT Start Date: 01/18/17 Stop Date: 01/18/17 Status: Completed Sodium Chloride 0.9% (Bolus) IV 1,000 mL, 1000 ml/hr, Infuse Over: 1 hr, Route: IV, 1,000, Drug form: INJ, ONCE, Priority: STAT, Dosing Weight 59.091 kg, Start date: 01/18/17 5:13:00 CDT, Dura tion: 1 doses or times, Stop date: 01/18/17 5:13:00 CDT Start Date: 01/18/17 Stop Date: 01/18/17 Status: Completed sodium chloride 0.9% 1000 ml INJ 1,000 mL 1,000 mL, Rate: 125 ml/hr, Infuse over: 8 hr, Route: IV, Dosing Weight 59.091 kg , Total Volume: 1,000, Start date: 01/18/17 5:56:00 CDT, Duration: 30 day, Stop date: 02/17/17 5:55:00 CDT Start Date: 01/18/17 Stop Date: 01/21/17 Status: Discontinued sodium phosphate + D5W 250 mL 30 mmol, 10 mL, Route: IVPB, PRN, Dosing Weight 49.545, kg, PRN Abnormal Lab Res ult, For NON-ICU Patients Only., Start date: 01/22/17 16:30:00 CDT, Duration: 30 day, Stop date: 02/21/17 16:29:00 CDT Start Date: 01/22/17 Stop Date: 01/23/17 Status: Discontinued sodium phosphate + D5W 250 mL 15 mmol, 5 mL, Route: IVPB, PRN, Dosing Weight 49.545, kg, PRN Abnormal Lab Resu lt, For NON-ICU Patients Only., Start date: 01/22/17 16:30:00 CDT, Duration: 30 day, Stop date: 02/21/17 16:29:00 CDT Start Date: 01/22/17 Stop Date: 01/23/17 Status: Discontinued Tylenol 650 mg, 2 tab, Route: PO, Drug form: TAB, Q6H, Dosing Weight 49.545, kg, PRN Benjamin n 1-3/Temp > 100.4 F, Start date: 01/18/17 21:11:00 CDT, Duration: 30 day, Stop date: 02/17/17 21:10:00 CDT Notes: Do not exceed 4 gm/day. (Same as: Tylenol) Start Date: 01/18/17 Stop Date: 01/23/17 Status: Discontinued Valium 10 mg, 2 tab, Route: PO, Drug form: TAB, TID, Dosing Weight 49.545, kg, PRN Anxi ety, Start date: 01/19/17 8:13:00 CDT, Duration: 30 day, Stop date: 02/18/17 8:1 2:00 CDT Notes: (Same as: Valium) Start Date: 01/19/17 Stop Date: 01/23/17 Status: Discontinued Valium 10 mg oral tablet 10 mg=1 tab, PO, TID, PRN as needed for anxiety, 0 Refill(s) Start Date: 01/18/17 Stop Date: 01/25/17 Status: Discontinued Zofran 4 mg, 2 mL, Route: IVP, Drug form: INJ, Q6H, Dosing Weight 49.545, kg, PRN Nause a, Start date: 01/18/17 21:12:00 CDT, Duration: 30 day, Stop date: 02/17/17 21:1 1:00 CDT Notes: (Same as: Zofran) MEDICATION WASTE Product Size: 4 mgProduct Was delmy: ___ mg Start Date: 01/18/17 Stop Date: 01/23/17 Status: Discontinued Results ELECTROLYTES 1 2 3 Most recent to oldest [Reference Range]: 139 mEq/L (01/22/17 3:46 AM) 141 mEq/L (01/21/17 5:59 AM) 139 mEq/L (01/20/17 5:32 AM) Sodium Lvl [135-145 mEq/L] 3.9 mEq/L (01/23/17 4:51 AM) 3.5 mEq/L (01/22/17 11:09 PM) 3.1 mEq/L *LOW* (01/22/17 3:46 AM) Potassium Lvl [3.5-5.1 mEq/L] 105 mEq/L (01/22/17 3:46 AM) 104 mEq/L (01/21/17 5:59 AM) 104 mEq/L (01/20/17 5:32 AM) Chloride Lvl [95-109 mEq/L] 26 mEq/L (01/22/17 3:46 AM) 24 mEq/L (01/21/17 5:59 AM) 22 mEq/L *LOW* (01/20/17 5:32 AM) CO2 [24-32 mEq/L] 11.1 mEq/L (01/22/17 3:46 AM) 15.8 mEq/L (01/21/17 5:59 AM) 15.6 mEq/L (01/20/17 5:32 AM) AGAP [10.0-20.0 mEq/L] CHEM PANEL 1 2 3 Most recent to oldest [Reference Range]: 0.23 mg/dL *LOW* (01/22/17 3:46 AM) 0.16 mg/dL *LOW* (01/21/17 5:59 AM) 0.20 mg/dL *LOW* (01/20/17 5:32 AM) Creatinine Lvl [0.50-1.40 mg/dL] 146 mL/min/1.73m2 1 *NA* (01/22/17 3:46 AM) 165 mL/min/1.73m2 2 *NA* (01/21/17 5:59 AM) 153 mL/min/1.73m2 3 *NA* (01/20/17 5:32 AM) eGFR 11 mg/dL (01/22/17 3:46 AM) 9 mg/dL (01/21/17 5:59 AM) 9 mg/dL (01/20/17 5:32 AM) BUN [7-22 mg/dL] 26 *HI* (01/19/17 4:14 AM) 39 *HI* (01/18/17 3:45 AM) B/C Ratio [6-25] 91 mg/dL (01/22/17 3:46 AM) 76 mg/dL (01/21/17 5:59 AM) 80 mg/dL (01/20/17 5:32 AM) Glucose Lvl [70-99 mg/dL] 5.2 g/dL *LOW* (01/19/17 4:14 AM) 6.5 g/dL (01/18/17 3:45 AM) Total Protein [6.4-8.4 g/dL] 2.6 g/dL *LOW* (01/19/17 4:14 AM) 3.0 g/dL *LOW* (01/18/17 3:45 AM) Albumin Lvl [3.5-5.0 g/dL] 2.6 g/dL *LOW* (01/19/17 4:14 AM) 3.5 g/dL (01/18/17 3:45 AM) Globulin [2.7-4.2 g/dL] 1.0 (01/19/17 4:14 AM) 0.9 (01/18/17 3:45 AM) A/G Ratio [0.7-1.6] 7.4 mg/dL *LOW* (01/22/17 3:46 AM) 7.5 mg/dL *LOW* (01/21/17 5:59 AM) 7.5 mg/dL *LOW* (01/20/17 5:32 AM) Calcium Lvl [8.5-10.5 mg/dL] 2.2 mg/dL *LOW* (01/19/17 4:14 AM) Phosphorus [2.5-4.5 mg/dL] 2.1 mg/dL (01/23/17 4:51 AM) 2.0 mg/dL (01/22/17 11:09 PM) 1.8 mg/dL (01/21/17 5:59 AM) Magnesium Lvl [1.8-2.4 mg/dL] 46 unit/L (01/19/17 4:14 AM) 71 unit/L *HI* (01/18/17 3:45 AM) ALT [0-65 unit/L] 103 unit/L *HI* (01/19/17 4:14 AM) 132 unit/L *HI* (01/18/17 3:45 AM) AST [0-37 unit/L] 112 unit/L (01/19/17 4:14 AM) 141 unit/L *HI* (01/18/17 3:45 AM) Alk Phos [39-136 unit/L] 0.6 mg/dL (01/19/17 4:14 AM) 0.5 mg/dL (01/18/17 3:45 AM) Bili Total [0.2-1.3 mg/dL] 1.2 mMol/L (01/18/17 12:20 PM) Lactic Acid Lvl [0.5-2.2 mMol/L] 5.62 ng/mL 4 *CRIT* (01/20/17 5:32 AM) Procalcitonin Lvl [0.00-0.10 ng/mL] 1Result Comment: The [...] be mul tiplied by the estimated BMI. 3Result Comment: The eGFR is calculated using the [...] be mul tiplied by the estimated BMI. 4Result Comment: Critical Result(s) called to Mallika Alcala at 01/20/2017 07:31 by umu. Read back OK. CARDIAC ENZYMES 1 2 3 Most recent to oldest [Reference Range]: 104 unit/L (01/18/17 3:45 AM) 102 unit/L (01/18/17 3:45 AM) Total CK [12-191 unit/L] 0.7 ng/mL (01/18/17 3:45 AM) CK MB [0.5-3.6 ng/mL] 0.7 (01/18/17 3:45 AM) CK MB Index [0.0-2.5] 0.02 ng/mL (01/18/17 3:45 AM) Troponin-I [0.00-0.40 ng/mL] DRUG SCREEN 1 2 3 Most recent to oldest [Reference Range]: Negative *NA* (01/22/17 10:00 AM) U Amph Scr [Negative] Negative *NA* (01/22/17 10:00 AM) U Barbra Scr [Negative] Positive *ABN* (01/22/17 10:00 AM) U Benzodia Scr [Negative] Negative *NA* (01/22/17 10:00 AM) U Cocaine Scr [Negative] Positive *ABN* (01/22/17 10:00 AM) U Opiate Scr [Negative] Negative *NA* (01/22/17 10:00 AM) U Phencyc Scr [Negative] Negative *NA* (01/22/17 10:00 AM) U Cannab Scr [Negative] See Note (01/22/17 10:00 AM) UDS Note URINE AND STOOL 1 2 3 Most recent to oldest [Reference Range]: Slight *ABN* (01/18/17 3:45 AM) UA Turbidity [Clear] Yellow *NA* (01/18/17 3:45 AM) UA Color [Yellow] 5.0 (01/18/17 3:45 AM) UA pH [5.0-8.0] 1.016 (01/18/17 3:45 AM) UA Spec Grav [<=1.030] Negative mg/dL *NA* (01/18/17 3:45 AM) UA Glucose [Negative mg/dL] Moderate *ABN* (01/18/17 3:45 AM) UA Blood [Negative] 20 mg/dL *ABN* (01/18/17 3:45 AM) UA Ketones [Negative mg/dL] 30 mg/dL *ABN* (01/18/17 3:45 AM) UA Protein [Negative mg/dL] <=1.0 mg/dL *NA* (01/18/17 3:45 AM) UA Urobilinogen [0.1-1.0 mg/dL] Negative *NA* (01/18/17 3:45 AM) UA Bili [Negative] Negative (01/18/17 3:45 AM) UA Leuk Est [Negative] Negative (01/18/17 3:45 AM) UA Nitrite [Negative] 6 /HPF *HI* (01/18/17 3:45 AM) UA WBC [0-5 /HPF] 11 /HPF *HI* (01/18/17 3:45 AM) UA RBC [0-2 /HPF] Moderate /LPF *ABN* (01/18/17 3:45 AM) UA Sq Epi [Few /LPF] 1 /LPF (01/18/17 3:45 AM) UA Hyal Cast [0-2 /LPF] IMMUNOLOGY 1 2 3 Most recent to oldest [Reference Range]: Not Detected (01/19/17 4:14 AM) Vir Ld-HIV1 RNA <1.3 log *NA* (01/19/17 4:14 AM) Log10 HIV1 Negative *NA* (01/19/17 4:14 AM) Hep Bs Ag [Negative] Negative *NA* (01/19/17 4:14 AM) Hep B Core IgM [Negative] Negative *NA* (01/19/17 4:14 AM) Hep A IgM [Negative] Negative *NA* (01/19/17 4:14 AM) Hep C Ab HEMATOLOGY 1 2 3 Most recent to oldest [Reference Range]: 9.2 K/CMM (01/22/17 3:46 AM) 7.7 K/CMM (01/20/17 5:32 AM) 7.0 K/CMM (01/19/17 4:14 AM) WBC [3.7-10.4 K/CMM] 2.61 M/CMM *LOW* (01/22/17 3:46 AM) 2.87 M/CMM *LOW* (01/20/17 5:32 AM) 3.09 M/CMM *LOW* (01/19/17 4:14 AM) RBC [4.20-5.40 M/CMM] 8.6 g/dL *LOW* (01/22/17 3:46 AM) 9.5 g/dL *LOW* (01/20/17 5:32 AM) 10.3 g/dL *LOW* (01/19/17 4:14 AM) Hgb [12.0-16.0 g/dL] 24.7 % *LOW* (01/22/17 3:46 AM) 27.7 % *LOW* (01/20/17 5:32 AM) 30.3 % *LOW* (01/19/17 4:14 AM) Hct [36.0-48.0 %] 94.8 fL (01/22/17 3:46 AM) 96.5 fL (01/20/17 5:32 AM) 98.2 fL *HI* (01/19/17 4:14 AM) MCV [80.0-98.0 fL] 32.9 pg *HI* (01/22/17 3:46 AM) 32.9 pg *HI* (01/20/17 5:32 AM) 33.5 pg *HI* (01/19/17 4:14 AM) MCH [27.0-31.0 pg] 34.7 g/dL (01/22/17 3:46 AM) 34.1 g/dL (01/20/17 5:32 AM) 34.2 g/dL (01/19/17 4:14 AM) MCHC [32.0-36.0 g/dL] 15.7 % *HI* (01/22/17 3:46 AM) 14.9 % *HI* (01/20/17 5:32 AM) 14.3 % (01/19/17 4:14 AM) RDW [11.5-14.5 %] 60 K/CMM *LOW* (01/22/17 3:46 AM) 35 K/CMM *LOW* (01/20/17 5:32 AM) 33 K/CMM *LOW* (01/19/17 4:14 AM) Platelet [133-450 K/CMM] 10.7 fL *HI* (01/22/17 3:46 AM) 10.7 fL *HI* (01/20/17 5:32 AM) 10.6 fL *HI* (01/19/17 4:14 AM) MPV [7.4-10.4 fL] 55.0 % (01/22/17 3:46 AM) 75.7 % *HI* (01/20/17 5:32 AM) 82.0 % *HI* (01/19/17 4:14 AM) Segs [45.0-75.0 %] 34.7 % (01/22/17 3:46 AM) 16.1 % *LOW* (01/20/17 5:32 AM) 11.9 % *LOW* (01/19/17 4:14 AM) Lymphocytes [20.0-40.0 %] 9.2 % (01/22/17 3:46 AM) 7.5 % (01/20/17 5:32 AM) 5.8 % (01/19/17 4:14 AM) Monocytes [2.0-12.0 %] 0.1 % (01/22/17 3:46 AM) 0.4 % (01/20/17 5:32 AM) Eosinophils [0.0-4.0 %] 1.0 % (01/22/17 3:46 AM) 0.3 % (01/20/17 5:32 AM) 0.3 % (01/19/17 4:14 AM) Basophils [0.0-1.0 %] 5.1 K/CMM (01/22/17 3:46 AM) 5.8 K/CMM (01/20/17 5:32 AM) 5.7 K/CMM (01/19/17 4:14 AM) Segs-Bands # [1.5-8.1 K/CMM] 3.2 K/CMM (01/22/17 3:46 AM) 1.2 K/CMM (01/20/17 5:32 AM) 0.8 K/CMM *LOW* (01/19/17 4:14 AM) Lymphocytes # [1.0-5.5 K/CMM] 0.9 K/CMM *HI* (01/22/17 3:46 AM) 0.6 K/CMM (01/20/17 5:32 AM) 0.4 K/CMM (01/19/17 4:14 AM) Monocytes # [0.0-0.8 K/CMM] 0.1 K/CMM (01/22/17 3:46 AM) Basophils # [0.0-0.2 K/CMM] Slight *NA* (01/20/17 5:32 AM) Target Cell 1-3 per HPF (01/20/17 5:32 AM) Schistocyte [None Seen] Normal (01/20/17 5:32 AM) Plt Morph Immunizations No data available for this section [...] understanding. Assessment and Plan Extracted from: Title: Clinical Document Author: Kong Rodríguez MD Date: 01/22/17 Progress Daily [facility] Completed: Jan, 08:05 by Kong Rodríguez MD RM: 146 - 1P, SE [id number] MARIA ISABEL [id number] (: 1965) F Attending: Kong Rodríguezhone: Service: Internal Medicine Reason for Admission: GENERALIZED WEAKNESS, DEHYDRATION Working DRG: Kidney & urinary tract infections w/o FPC Code status: None Specified=FULL CODECurrent diet: Isolation: None Documented Allergies: NKDA SUBJECTIVE still feels weak generilzed bodyache no fever having bigeminy in night low blood pressure in night OBJECTIVE HEENT: peerla Heart:s1,s2,No murmur Lungs:B/L equal air entries,No wheezing, no rales,No crackles Abd:Bowel sounds present, NT,ND Extremities:NO edema Neurology:AAOX3 NO FN Skin: intact, no lesions Labs (Last four charted values) WBC 9.2(VIVIANA 22)7.7(VIVIANA 20)7.0(VIVIANA 19)6.1(VIVIANA 18) Hgb L 8.6(VIVIANA 22)L 9.5(VIVIANA 20)L 10.3(VIVIANA 19)L 11.8(VIVIANA 18) Hct L 24.7(VIVIANA 22)L 27.7(VIVIANA 20)L 30.3(VIVIANA 19)L 34.8(VIVIANA 18) Plt L 60(VIVIANA 22)L 35(VIVIANA 20)L 33(VIVIANA 19)L 50(VIVIANA 18) Na 139(VIVIANA 22)141(VIVIANA 21)139(VIVIANA 20)137(VIVIANA 19) K L 3.1(VIVIANA 22)C 2.8(VIVIANA 21)C 2.6(VIVIANA 20)L 3.1(VIVIANA 19) CO2 26(VIVIANA 22)24(VIVIANA 21)L 22(VIVIANA 20)24(VIVIANA 19) Cl 105(VIVIANA 22)104(VIVIANA 21)104(VIVIANA 20)103(VIVIANA 19) Cr L 0.23(VIVIANA 22)L 0.16(VIVIANA 21)L 0.20(VIVIANA 20)L 0.43(VIVIANA 19) BUN 11(VIVIANA 22)9(VIVIANA 21)9(VIVIANA 20)11(VIVIANA 19) Glucose Random 91(VIVIANA 22)76(VIVIANA 21)80(VIVIANA 20)97(VIVIANA 19) Mg 1.8(VIVIANA 21)1.9(VIVIANA 19) Phos L 2.2(VIVIANA 19) Ca L 7.4(VIVIANA 22)L 7.5(VIVIANA 21)L 7.5(VIVIANA 20)L 8.0(JAN 19) Troponin 0.02(JAN 18) CK MB 0.7(JAN 18) Total CK 102(JAN 18)104(JAN 18) ASSESSMENT & EXAM sepsis uti fibromyalgia protein calory malnutrition wekness PLAN & TREATMENT await for patient transition specialist cont iv abx cont pt/ot pt does not want to go sniff may dc in am DIAGNOSES & PROBLEMS Ready for Discharge (Yes/No)? Pina still necessary (Yes/No): Line still necessary (Yes/No): 24hr Labs 01/22 0346 Glucose Lvl91 BUN11 Creatinine Lvl0.23 L Sodium Anq373 Potassium Lvl3.1 L Chloride Kvo650 CO226 AGAP11.1 Calcium Lvl7.4 L kKAV859 WBC9.2 RBC2.61 L Hgb8.6 L Hct24.7 L MCV94.8 MCH32.9 H MCHC34.7 RDW15.7 H Gzftauhj91 L MPV10.7 H Segs55.0 Monocytes9.2 Jnlhgxmcwhj91.7 Eosinophils0.1 Basophils1.0 Segs-Bands #5.1 Lymphocytes #3.2 Monocytes #0.9 H Basophils #0.1 01/19 0414 Vir Ld-HIV1 RNANot Detected Log10 HIV1<1.3 VitalsTmp(F)FjvrmWQGHNaB7EKG5 01/22 03:2999.3432643/306002--- 01/22 00:0099.912351/285530--- 01/21 20:0099.9551810/953555--- 01/21 16:2899.066741/922315--- 01/21 11:5298.341537/0353819--- 24 Hr Tmax: 99.7F (37.61c) at 01/22 03:29Vital Signs are the last 5 in the past 48 hours. DateWt(kg)Wt(lb)Ht(cm)Ht(in)Method 01/18 (initial) 49.55 109.00Measured .64 66.00Stated I&ORecordInOutBal 01/2124hr Tot 1468 0 1468 01/2024hr Tot 350 0 350 Medications (12) Active Scheduled Meds (4): 01/22/17 PARoxetine (Paxil) 20 mg PO Daily 01/18/17 docusate 100 mg PO BID 01/21/17 metroNIDAZOLE (Flagyl) 500 mg IV ABXQ8H 200 ml/hr 01/21/17 potassium chloride 10 mEq PO BID Unscheduled Meds: None PRN Meds (7): 01/18/17 acetaminophen-hydrocodone (acetaminophen-hydrocodone 325 mg-5 mg oral tablet) 1 tab PO Q4H 01/18/17 acetaminophen (Tylenol) 650 mg PO Q6H 01/19/17 diazepam (Valium) 10 mg PO TID 01/21/17 loperamide (Imodium A-D) 4 mg PO Q6H 01/18/17 ondansetron 4 mg IVP Q6H 01/18/17 ondansetron (Zofran) 4 mg IVP Q6H 01/18/17 sodium chloride (Saline Flush 0.9%) 10 ml IVP PRN One Time Meds: None Continuous Infusions (1): 01/22/17 sodium chloride 0.45% 1000 ml INJ 1,000 mL 1,000 mL 100 ml/hr
[2018-07-03 17:57] LABS: AMPHETAMINES SCREEN,URINE NEGATIVE (NEGATIVE); BENZODIAZEPINES SCREEN,URINE POSITIVE (NEGATIVE); CLARITY,URINE CLEAR (CLEAR); COLOR,URINE YELLOW (YELLOW); KETONES,URINE NEGATIVE (NEGATIVE); LEUKOCYTE ESTERASE ,URINE NEGATIVE (NEGATIVE); NITRITE,URINE NEGATIVE (NEGATIVE); PHENCYCLIDINE SCREEN,URINE NEGATIVE (NEGATIVE); PROTEIN,URINE DIPSTICK NEGATIVE (NEGATIVE)
[2018-07-03 17:58] LABS: BILIRUBIN,URINE NEGATIVE (NEGATIVE); URINE UROBILINOGEN 0.2 mg/dL (0.2 - 1)
[2018-07-03 18:20] LABS: BACTERIA,URINE RARE /HPF; EPITHELIAL CELLS,URINE RARE /LPF
--- NOTE | 2018-07-03 18:32 | Diagnostic Imaging Report ---
EXAMINATION: CHEST 2 VIEWS INDICATION: ^sob ^[id number] ^1750 COMPARISON: None FINDINGS: PA and lateral views TUBES and LINES: None. LUNGS: Lungs are well inflated. Lungs are clear. There is no evidence of pneumonia or pulmonary edema. PLEURA: No pleural effusion or pneumothorax. HEART AND MEDIASTINUM: The cardiomediastinal silhouette is unremarkable. BONES AND SOFT TISSUES: No acute osseous lesion. Soft tissues are unremarkable. UPPER ABDOMEN: No free air under the diaphragm. IMPRESSION: No acute thoracic abnormality. Signed by: Dr. Lito Brown MD on 07/03/2018 6:29 PM
[2018-07-03 19:16] LABS: BASOPHILS % 0.6 % (0.0-1.0); EOSINOPHILS # (AUTO) 0.3 (0.0-0.4); EOSINOPHILS % 4.9 % (0.0-6.0); HEMATOCRIT 37.5 % (34.2-44.1); HEMOGLOBIN 12.7 g/dL (12.0-16.0); LYMPHOCYTES # (AUTO) 2.7 (1.0-3.2); LYMPHOCYTES % 41.2 % (18.0-39.1); MEAN CORPUSCULAR HGB CONC 33.9 g/dL (31-35); MEAN CORPUSCULAR VOLUME 103.3 fL (81-99); MONOCYTES # (AUTO) 0.4 (0.2-0.8); MONOCYTES % 5.5 % (4.4-11.3); NEUTROPHILS # (AUTO) 3.1 (2.1-6.9); NEUTROPHILS % 47.5 % (38.7-80.0); PLATELET COUNT 261 x10e3/uL (140-360); RED BLOOD COUNT 3.63 x10e6/uL (3.6-5.1); RED CELL DISTRIBUTION WIDTH 13.7 % (11.7-14.4)
[2018-07-03 19:42] LABS: ALANINE AMINOTRANSFERASE 19 IU/L (0-55); ALBUMIN/GLOBULIN RATIO 1.2 (0.8-2.0); ALKALINE PHOSPHATASE 54 IU/L (40-150); BLOOD UREA NITROGEN 28 mg/dL (7-26); BUN/CREATININE RATIO 32 (6-25); CALCIUM 9.5 mg/dL (8.4-10.2); CARBON DIOXIDE 17 mmol/L (22-29); CHLORIDE 111 mmol/L (98-107); CREATININE, SERUM 0.88 mg/dL (0.57-1.11); EST GLOMERULAR FILTRATION RATE > 60 ML/MIN (60-); GLUCOSE 103 mg/dL (74-118); SODIUM 141 mmol/L (136-145)
[2018-07-03 21:32] LABS: SALICYLATE 63.8 mg/dL (0-30)
[2018-07-03 21:35] LABS: ACETAMINOPHEN < 3 ug/mL (10-30)
[2018-07-03] MEDS ORDERED: SODIUM BICARBONATE 8.4% SYRING 150 ML in DEXTROSE 5% 1,000 ML IV ONE (22:45)
[2018-07-04] VITALS (8 sets, daily range): BP systolic 83–104; BP diastolic 50–85
[2018-07-04] MEDS ORDERED: ONDANSETRON HCL INJ 2 MG/ML VIAL IV PRN
--- NOTE | 2018-07-04 00:36 | Diagnostic Imaging Report ---
EXAMINATION: Head CT HISTORY: Frontal headache, dizziness COMPARISON: Brain MRI and 10/04/[address] on 03/14/2014 TECHNIQUE: Multidetector axial images were obtained without contrast from the foramen magnum to the vertex . The images were reconstructed using brain and bone algorithms. Thin section brain images were reformatted into coronal and sagittal planes. Image quality: Motion/streaking artifact limits the evaluation of the skull base and posterior cranial fossa. Dose modulation, iterative reconstruction, and/or weight based adjustment of the mA/kV was utilized to reduce the radiation dose to as low as reasonably achievable. FINDINGS: Parenchyma: 1. No abnormal densities. Unchanged nonspecific linear hypodensity in the anterior limb of the right internal capsule, when compared to multiple prior studies. 2. No mass or hemorrhage. No CT evidence of acute territorial vascular insult. Extra-axial spaces:No abnormal density. No extra-axial fluid collections . 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 Brain volume: Normal for age. Ventricles: No hydrocephalus or displacement. Arteries: No density suggestive of thrombus. Dural sinuses: No abnormal density. Extra-axial spaces: No abnormal density. Foramen magnum: No mass, Chiari malformation, or basilar invagination. Sella: No obvious mass. Paranasal/mastoid sinuses: Imaged portions unremarkable. Skull/Scalp: No lytic or blastic lesions. No fractures. IMPRESSION: No acute intracranial abnormalities, particularly no mass, hemorrhage or acute cortical infarct. Unchanged from prior head CT on 03/14/2014. Signed by: Dr. Nilam Gomez M.D. on 07/04/2018 12:33 AM
[2018-07-04 00:53] LABS: ABG HCO3 15 mmol/L (23-28); ABG PCO2 21 mmHg (41-51); ABG PH 7.45 (7.31-7.41); ABG PO2 115 mmHg (80-105)
[2018-07-04] MEDS ORDERED: ALPRAZOLAM0.25 MG PO (02:18)
[2018-07-04] MEDS ORDERED: TOPIRAMATE50 MG PO (02:18)
--- OUTSIDE RECORDS SUMMARY | 2018-07-04 03:22 | XMS REPORT ---
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 Allergies, Adverse Reactions, Alerts This patient has no known allergies or adverse reactions. Medications This patient has no known medications. Results Test Description Test Time Test Comments Text Results Atomic Results Result Comments CT BRAIN WO 2018-07-04 00:29:00 [place] [address] Patient Name: MARIA ISABEL KELLY MR #: [id number] : 1965 Age/Sex: 52/F Req #: [id number] Adm Physician: Ordered by: EUN TURNER MD Report #: [id number] Location: ER Room/Bed: Procedure: [id number] CT/CT BRAIN WO Exam Date: 07/04/18 Exam Time: 0014 REPORT STATUS: Signed EXAMINATION: Head CT HISTORY: Frontal headache, dizzines s COMPARISON: Brain MRI and 10/04/[address] on 03/14/2014 TECHNIQUE: Multidetector axial images were obtained without contrast from the foramen magnum to the vertex . The images were reconstructed using brain and bone algorithms. Thin section brain images were reformatted into coronal and sagittal planes. Image quality: Motion/streaking artifact limits the evaluation of the skull base and posterior cranial fossa. Dose modulation, iterative reconstruction, and/or weight based adjustment of the mA/kV was utilized to reduce the radiation dose to as low as reasonably achievable. FINDINGS: Parenchyma: 1. No abnormal densities. Unchanged nonspecific linear hypodensity in the anterior limb of the right internal capsule, when compared to multiple prior studies. 2. No mass or hemorrhage. No CT evidence of acute territorial vascular insult. Extra- axial spaces:No abnormal density. No extra-axial fluid collections . 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 Brain volume: Normal for age. Ventricles: No hydrocephalus or displacement. Arteries: No density suggestive of thrombus. Dural sinuses: No abnormal density. Extra-axial spaces: No abnormal density. Foramen magnum: No mass, Chiari malformation, or basilar invagination. Sella: No obvious mass. Paranasal/mastoid sinuses: Imaged portions unremarkable. Skull/Scalp: No lytic or blastic lesions. No fractures. IMPRESSION: No acute intracranial abnormalities, particularly no mass, hemorrhage or acute cortical infarct. Unchanged from prior head CT on 03/14/2014. Signed by: Dr. Mile Gomez M.D. on 07/04/2018 12:33 AM Dictated By: MILE GOMEZ MD Transcribed By: ERIN on 07/04/1832 COPY TO: EUN TURNER MD CHEST 2 VIEWS 2018-07-03 18:29:00 [place] [address] Patient Name: MARIA ISABEL KELLY MR #: [id number] : 1965 Age/Sex: 52/F Req #: [id number] Adm Physician: Ordered by: ISIDRO DICKEY MD Report #: [id number] Location: ER Room/Bed: Procedure: [id number] DX/CHEST 2 VIEWS Exam Date: 07/03/18 Exam Time: 1750 REPORT STATUS: Signed EXAMINATION: CHEST 2 VIEWS INDICATION: sob [id number] COMPARISON: None FINDINGS: PA and lateral views TUBES and LINES: None. LUNGS: Lungs are well inflated. Lungs are clear. There is no evidence of pneumonia or pulmonary edema. PLEURA: No pleural effusion or pneumothorax. HEART AND MEDIASTINUM: The cardiomediastinal silhouette is unremarkable. BONES AND SOFT TISSUES: No acute osseous lesion. Soft tissues are unremarkable. UPPER ABDOMEN: No free air under the diaphragm. IMPRESSION: No acute thoracic abnormality. Signed by: Dr. Lito Thomson MD on 07/03/2018 6:29 PM Dictated By: LITO THOMSON MD 28 Transcribed By: ERIN on 07/03/181828 COPY TO: ISIDRO DICKEY MD
[2018-07-04 07:27] LABS: BASOPHILS % 0.3 % (0.0-1.0); EOSINOPHILS # (AUTO) 0.3 (0.0-0.4); EOSINOPHILS % 5.7 % (0.0-6.0); HEMATOCRIT 32.7 % (34.2-44.1); HEMOGLOBIN 11.2 g/dL (12.0-16.0); LYMPHOCYTES % 34.3 % (18.0-39.1); MEAN CORPUSCULAR HEMOGLOBIN 34.9 pg (28-32); MEAN CORPUSCULAR HGB CONC 34.3 g/dL (31-35); MEAN CORPUSCULAR VOLUME 101.9 fL (81-99); MONOCYTES # (AUTO) 0.4 (0.2-0.8); NEUTROPHILS # (AUTO) 3.1 (2.1-6.9); NEUTROPHILS % 52.4 % (38.7-80.0); PLATELET COUNT 210 x10e3/uL (140-360); RED BLOOD COUNT 3.21 x10e6/uL (3.6-5.1); RED CELL DISTRIBUTION WIDTH 13.6 % (11.7-14.4)
[2018-07-04 07:53] LABS: ALANINE AMINOTRANSFERASE 17 IU/L (0-55); ALBUMIN 3.3 g/dL (3.5-5.0); ALBUMIN/GLOBULIN RATIO 1.3 (0.8-2.0); ALKALINE PHOSPHATASE 47 IU/L (40-150); ANION GAP 12.5 mmol/L (8-16); BLOOD UREA NITROGEN 28 mg/dL (7-26); BUN/CREATININE RATIO 37 (6-25); CALCIUM 8.7 mg/dL (8.4-10.2); CARBON DIOXIDE 20 mmol/L (22-29); CHLORIDE 115 mmol/L (98-107); CREATININE, SERUM 0.76 mg/dL (0.57-1.11); EST GLOMERULAR FILTRATION RATE > 60 ML/MIN (60-); GLUCOSE 94 mg/dL (74-118); POTASSIUM 3.5 mmol/L (3.5-5.1); SODIUM 144 mmol/L (136-145)
[2018-07-04] MEDS: ACETAMINOPHEN 325 MG TAB PO PRN ×2 (10:25→20:00)
[2018-07-04] MEDS ORDERED: POTASSIUM CHLORIDE 20 MEQ TAB CR PO NR ×2 (12:15)
[2018-07-04] MEDS ORDERED: SODIUM PHOSPHATE 3 MMOL/ML INJ IV ONE ×2 (12:15→12:45)
[2018-07-04] MEDS ORDERED: MAGNESIUM SULFATE 2GM/50ML 50 ML IV ONE (12:30)
[2018-07-04 12:54] LABS: ANION GAP 13.7 mmol/L (8-16); BLOOD UREA NITROGEN 28 mg/dL (7-26); BUN/CREATININE RATIO 40 (6-25); CALCIUM 8.9 mg/dL (8.4-10.2); CARBON DIOXIDE 19 mmol/L (22-29); CHLORIDE 111 mmol/L (98-107); EST GLOMERULAR FILTRATION RATE > 60 ML/MIN (60-); GLUCOSE 83 mg/dL (74-118); MAGNESIUM 2.2 MG/DL (1.3-2.1); PHOSPHORUS 4.1 MG/DL (2.3-4.7); POTASSIUM 3.7 mmol/L (3.5-5.1); SODIUM 140 mmol/L (136-145)
[2018-07-04] MEDS ORDERED: SODIUM PHOSPHATE 20 MMOL in SODIUM CHLORIDE 0.9% 250ML 250 ML IV ONE (13:00)
[2018-07-04] MEDS: SODIUM BICARBONATE 8.4% 150 ML in STERILE WATER IV SOLN 1,000 ML IV SCH ×2 (13:32→22:08)
[2018-07-04] MEDS: ALPRAZOLAM 0.25 MG TAB PO SCH ×2 (15:31→20:00)
--- NOTE | 2018-07-04 15:46 | History and Physical ---
REASON FOR ADMISSION: This is a 52-year-old female patient of Dr. Derian Alexis, presented to the emergency room with a complaint of dyspnea. HISTORY OF PRESENT ILLNESS: Ms. Bart Ni is a 52-year-old female patient who was trying to do the rapid detox and subsequently, patient was having severe neck pain, back pain and headaches. So, patient was taking a lot of BC powder [id number]. Subsequently, patient was having shortness of breath and headache. So, patient come to the ER. Patient has outpatient lab work done by her PCP, Dr. Derian Alexis and he was told to come to the hospital. REVIEW OF SYSTEMS: Headache, neck pain, and shortness of breath. PAST MEDICAL HISTORY: Opiate abuse. ALLERGIES: NO KNOWN DRUG ALLERGIES. SOCIAL HISTORY: Former smoker. Denies using alcohol. FAMILY HISTORY: Negative for any diabetes mellitus, hypertension. PHYSICAL EXAMINATION GENERAL: She is a middle-aged female patient. VITAL SIGNS: Temperature 97.9, pulse rate 78, respiration rate 18, blood pressure 183/53. HEENT: Normocephalic, atraumatic. NECK: No JVD. No lymphadenopathy. LUNGS: Bilateral equal air entry. No rales. No rhonchi. ABDOMEN: Soft. Bowel sounds present. NEUROLOGICAL: No focal neurological deficit. ADMITTING IMPRESSION AND DIAGNOSES: Acute unintentional accidental salicylate toxicity with metabolic acidosis and respiratory alkalosis. LABORATORY EXAMINATION: Patient's lactic acid level was less than 4.4 and bicarb was 17. On chemistry and on blood gas, the patient's pH 7.45, her pCO2 level was 21, and bicarb level was 15. PLAN: Patient will be admitted with above diagnosis. Patient will be treated with IV fluids and IV bicarbonate. Potassium chloride will be given. Patient will be monitored for electrolytes and cardiac monitoring will be done. Nephrology, Dr. Martinez had been consulted. Job#: [id number] ADY
[2018-07-04 18:52] LABS: ANION GAP 10.8 mmol/L (8-16); BLOOD UREA NITROGEN 29 mg/dL (7-26); BUN/CREATININE RATIO 44 (6-25); CALCIUM 8.7 mg/dL (8.4-10.2); CARBON DIOXIDE 24 mmol/L (22-29); CHLORIDE 110 mmol/L (98-107); CREATININE, SERUM 0.66 mg/dL (0.57-1.11); EST GLOMERULAR FILTRATION RATE > 60 ML/MIN (60-); GLUCOSE 107 mg/dL (74-118); PHOSPHORUS 2.4 MG/DL (2.3-4.7); POTASSIUM 3.8 mmol/L (3.5-5.1); SODIUM 141 mmol/L (136-145)
[2018-07-05] VITALS: BP 100/59
[2018-07-05 00:33] LABS: ANION GAP 10.5 mmol/L (8-16); BLOOD UREA NITROGEN 23 mg/dL (7-26); BUN/CREATININE RATIO 40 (6-25); CALCIUM 8.4 mg/dL (8.4-10.2); CARBON DIOXIDE 25 mmol/L (22-29); CHLORIDE 107 mmol/L (98-107); CREATININE, SERUM 0.57 mg/dL (0.57-1.11); EST GLOMERULAR FILTRATION RATE > 60 ML/MIN (60-); GLUCOSE 75 mg/dL (74-118); MAGNESIUM 1.9 MG/DL (1.3-2.1); PHOSPHORUS 2.7 MG/DL (2.3-4.7); POTASSIUM 3.5 mmol/L (3.5-5.1); SODIUM 139 mmol/L (136-145)
[2018-07-05 04:00] VITALS: BP 118/63
[2018-07-05] MEDS: SODIUM BICARBONATE 8.4% 150 ML in STERILE WATER IV SOLN 1,000 ML IV SCH (05:21)
[2018-07-05 05:29] LABS: BASOPHILS % 0.6 % (0.0-1.0); EOSINOPHILS # (AUTO) 0.2 (0.0-0.4); EOSINOPHILS % 3.6 % (0.0-6.0); HEMATOCRIT 31.8 % (34.2-44.1); HEMOGLOBIN 10.7 g/dL (12.0-16.0); LYMPHOCYTES # (AUTO) 1.6 (1.0-3.2); LYMPHOCYTES % 32.8 % (18.0-39.1); MEAN CORPUSCULAR HEMOGLOBIN 34.3 pg (28-32); MEAN CORPUSCULAR HGB CONC 33.6 g/dL (31-35); MEAN CORPUSCULAR VOLUME 101.9 fL (81-99); MONOCYTES # (AUTO) 0.4 (0.2-0.8); NEUTROPHILS # (AUTO) 2.7 (2.1-6.9); NEUTROPHILS % 55.2 % (38.7-80.0); PLATELET COUNT 196 x10e3/uL (140-360); RED BLOOD COUNT 3.12 x10e6/uL (3.6-5.1); RED CELL DISTRIBUTION WIDTH 13.4 % (11.7-14.4)
[2018-07-05 05:52] LABS: ALANINE AMINOTRANSFERASE 19 IU/L (0-55); ALBUMIN 3.3 g/dL (3.5-5.0); ALBUMIN/GLOBULIN RATIO 1.4 (0.8-2.0); ALKALINE PHOSPHATASE 50 IU/L (40-150); ANION GAP 11.6 mmol/L (8-16); BLOOD UREA NITROGEN 15 mg/dL (7-26); BUN/CREATININE RATIO 25 (6-25); CALCIUM 8.8 mg/dL (8.4-10.2); CARBON DIOXIDE 28 mmol/L (22-29); CHLORIDE 107 mmol/L (98-107); EST GLOMERULAR FILTRATION RATE > 60 ML/MIN (60-); GLUCOSE 92 mg/dL (74-118); POTASSIUM 3.6 mmol/L (3.5-5.1); SODIUM 143 mmol/L (136-145)
[2018-07-05 06:23] LABS: MAGNESIUM 1.8 MG/DL (1.3-2.1); PHOSPHORUS 2.7 MG/DL (2.3-4.7)
[2018-07-05 07:54] VITALS: BP 119/67
[2018-07-05] MEDS: ALPRAZOLAM 0.25 MG TAB PO SCH ×2 (09:20→16:30)
[2018-07-05] MEDS: ACETAMINOPHEN 325 MG TAB PO PRN (09:20)
[2018-07-05 11:47] VITALS: BP 98/56
[2018-07-05 12:50] LABS: ANION GAP 10.8 mmol/L (8-16); BLOOD UREA NITROGEN 10 mg/dL (7-26); BUN/CREATININE RATIO 15 (6-25); CALCIUM 9.2 mg/dL (8.4-10.2); CARBON DIOXIDE 29 mmol/L (22-29); CHLORIDE 107 mmol/L (98-107); CREATININE, SERUM 0.67 mg/dL (0.57-1.11); EST GLOMERULAR FILTRATION RATE > 60 ML/MIN (60-); GLUCOSE 107 mg/dL (74-118); MAGNESIUM 2.1 MG/DL (1.3-2.1); PHOSPHORUS 2.9 MG/DL (2.3-4.7); POTASSIUM 3.8 mmol/L (3.5-5.1); SODIUM 143 mmol/L (136-145)
[2018-07-05 15:16] VITALS: BP 102/59
== END 2018-07-05 19:00 | disposition home or self-care (01) | DRG 918 ==
LOC: ER 16:23 → ERHOLD 23:56 → IMCU 07-04 04:37 → OBSVTOIN 07-04 13:44 → INTOOBSV 07-05 14:50 → OBSVTOIN 07-05 14:50
PROVIDERS: ADMIT Internal Medicine; ATTEND Internal Medicine
DX: T39.011A Poisoning by aspirin, accidental (unintentional), initial encounter (principal); E87.4 Mixed disorder of acid-base balance; Z79.891 Long term (current) use of opiate analgesic; G89.4 Chronic pain syndrome; F41.9 Anxiety disorder, unspecified; F11.10 Opioid abuse, uncomplicated
CPT/HCPCS: 36415; 36600; 70450; 71046; 80048; 80053; 80307; 80320; 80329; 81001; 82805; 83605; 83735; 84100; 84702; 85025; 85379; 93005; 99284; G0378; J2405; J3475; J7050; J7070